=== PATIENT | female | born 1955 | race Caucasian/White ===

== ENCOUNTER 2023-10-16 13:48 | Inpatient (IN) ==
[2023-10-16] MEDS ORDERED: Ondansetron ODT 4 mg TAB 4 MG TAB PO PRN (14:29)
[2023-10-16] MEDS ORDERED: Calcium Carb (TUMS) 500 mg CHEW TAB PO PRN (14:29)
[2023-10-16] MEDS ORDERED: Ondansetron 4 mg VIAL 2 MG/ML 2 ml VIAL IV PRN (14:29)
[2023-10-16] MEDS ORDERED: Magnesium Hydroxide LIQ 30 ML UDC PO PRN (14:29)
[2023-10-16 16:12] LABS: ABS Basophils 0.1 10^3/uL (0.0-0.1); ABS Eosinophils 0.1 10^3/uL (0.0-0.5); ABS Lymphocytes 0.4 10^3/uL (1.0-4.8); ABS Monocytes 0.5 10^3/uL (0.0-0.9); ABS Neutrophils 11.8 10^3/uL (1.5-7.6); Eosinophil % 0.7 %; Hematocrit 39.1 % (35-45); Lymphocyte % 3.2 %; Mean Corpuscular Hemoglobin 27.3 pg (27-33); Mean Corpuscular Hgb Conc 30.8 g/dL (31-36); Mean Corpuscular Volume 88.5 fL (80-97); Mean Platelet Volume 11.8 fL (7.5-11.2); Platelet Count 278 10^3/uL (150-450); Red Blood Count 4.41 10^6/uL (3.63-4.92); Red Cell Distribution Width 17.3 % (12-17)
[2023-10-16 16:18] LABS: Activated Partial Thrombo Time 32.8 seconds (26.0-38.0); INR 1.56 (0.83-1.13)
[2023-10-16] MEDS ORDERED: Albuterol HFA INHALER 8 gm MDI INH PRN (16:19)
[2023-10-16 17:01] LABS: Albumin 3.8 g/dL (3.2-5.2); Albumin/Globulin Ratio 1.5 (1-3); Calcium 9.2 mg/dL (8.6-10.3); Creatinine, Serum 1.32 mg/dL (0.51-0.95); Globulin 2.5 g/dL (2-4); Potassium 4.6 mmol/L (3.5-5.0); Total Bilirubin 0.5 mg/dL (0.2-1.0); Total Protein 6.3 g/dL (6.4-8.9); eGFR CKD-EPI 44.3 (>60)
[2023-10-16] MEDS: Magnesium Hydroxide LIQ 30 ML UDC PO SCH (22:25)
[2023-10-17 06:30] LABS: Hemoglobin 10.6 g/dL (11.5-14.3); Mean Platelet Volume 11.1 fL (7.5-11.2); Platelet Count 252 10^3/uL (150-450)
[2023-10-17 06:44] LABS: INR 1.47 (0.83-1.13)
[2023-10-17 07:07] LABS: Calcium 8.7 mg/dL (8.6-10.3); Creatinine, Serum 1.21 mg/dL (0.51-0.95); Potassium 4.2 mmol/L (3.5-5.0); eGFR CKD-EPI 49.1 (>60)
[2023-10-17] MEDS: Vitamin THERAPEUTIC TAB PO SCH (09:03)
[2023-10-17] MEDS: Enoxaparin 40 MG/0.4 ML SYR SUBCUT SCH (12:55)
[2023-10-17] MEDS: Sulfur Hexaflouride MICROSPHR 25 MG VIAL IV ONE (18:08)
[2023-10-18 05:41] LABS: Hematocrit 33.1 % (35-45); Hemoglobin 10.7 g/dL (11.5-14.3); Mean Platelet Volume 10.6 fL (7.5-11.2); Platelet Count 242 10^3/uL (150-450)
[2023-10-18 05:55] LABS: INR 1.35 (0.83-1.13)
[2023-10-18 07:38] LABS: Calcium 8.7 mg/dL (8.6-10.3); Creatinine, Serum 1.19 mg/dL (0.51-0.95); eGFR CKD-EPI 50.1 (>60)
[2023-10-18 10:33] LABS: Ferritin 47.2 ng/mL (11-307)
[2023-10-19] MEDS: Morphine 2 MG/ML SYRINGE IV PRN (08:18)
[2023-10-19 08:33] LABS: Hematocrit 34.8 % (35-45); Mean Platelet Volume 11.2 fL (7.5-11.2); Platelet Count 269 10^3/uL (150-450)
[2023-10-19 08:40] LABS: INR 1.25 (0.83-1.13)
[2023-10-19 08:51] LABS: Calcium 8.7 mg/dL (8.6-10.3); Creatinine, Serum 1.31 mg/dL (0.51-0.95); eGFR CKD-EPI 44.7 (>60)
[2023-10-19] MEDS ORDERED: Lidocaine 1% w EPI 1:100,000 MDV 20 ML VIAL ONE (12:25)
[2023-10-19] MEDS ORDERED: ROPIVACAINE 5 MG/ML 30 ML BTL (0.5%) ONE (13:17)
[2023-10-19] MEDS ORDERED: Dexamethasone IV 4 MG/ML VIAL 1 ml VIAL ONE ×2 (13:17→13:39)
[2023-10-19] MEDS ORDERED: Midazolam 2 mg/2 ml VIAL 1 mg/ml 2 ml VIAL (2 mg) ONE (13:29)
[2023-10-19] MEDS ORDERED: fentaNYL 100 mcg/2 ml 50 MCG/ML VIAL ONE (13:38)
[2023-10-19] MEDS ORDERED: Rocuronium 50 mg VIAL 10 mg/ml 5 ml VIAL (50 mg) ONE ×2 (13:38→15:56)
[2023-10-19] MEDS ORDERED: Ondansetron 4 mg VIAL 2 MG/ML 2 ml VIAL ONE (13:39)
[2023-10-19] MEDS ORDERED: Phenylephrine IV 10 MG/ML 1 ml VIAL ONE (13:39)
[2023-10-19] MEDS ORDERED: Lidocaine 2% PF 5 ML VIAL ONE (13:39)
[2023-10-19] MEDS ORDERED: Propofol 10 MG/ML 20 ML BTL ONE (13:39)
[2023-10-19] MEDS ORDERED: Buffered Lidocaine 1% SYRIN 1 ml ONE (13:45)
[2023-10-19] MEDS ORDERED: Clindamycin 900 MG/50 **NS BAG 900 MG/50 ML BAG ONE (14:54)
[2023-10-19] MEDS ORDERED: HYDROmorphone 1 MG/1 ML SYRINGE ONE (17:23)
[2023-10-19] MEDS ORDERED: Ondansetron 4 mg VIAL 2 MG/ML 2 ml VIAL IV PRN (17:59)
[2023-10-19] MEDS ORDERED: Naloxone 0.4 mg VIAL 0.4 mg/ml 1 ml VIAL IV PRN (17:59)
[2023-10-19] MEDS: Acetaminophen IV 1 GM/100ML 1,000 MG/100 ML BAG IV ONE (19:21)
[2023-10-19] MEDS: Clindamycin 900 MG/D5W BAG 900 MG/50 ML BAG IVPB SCH (22:15)
[2023-10-20 05:42] LABS: Hematocrit 28.2 % (35-45); Hemoglobin 8.7 g/dL (11.5-14.3); Mean Platelet Volume 11.1 fL (7.5-11.2); Platelet Count 244 10^3/uL (150-450)
[2023-10-20 06:04] LABS: Calcium 8.1 mg/dL (8.6-10.3); Creatinine, Serum 1.64 mg/dL (0.51-0.95); Potassium 4.7 mmol/L (3.5-5.0); eGFR CKD-EPI 34.1 (>60)
[2023-10-20 06:08] LABS: INR 1.42 (0.83-1.13)
[2023-10-20] MEDS: NS 0.9% 500 ml BAG 500 ML IV ONE (09:18)
[2023-10-20 16:53] LABS: Calcium 8.3 mg/dL (8.6-10.3); Creatinine, Serum 1.77 mg/dL (0.51-0.95); Potassium 5.2 mmol/L (3.5-5.0); eGFR CKD-EPI 31.1 (>60)
[2023-10-20] MEDS: NS 0.9% 1000 ml BAG 1,000 ML IV SCH (22:22)
[2023-10-21] MEDS: Lactulose 30 ml UDC PO PRN (08:26)
[2023-10-21 12:40] LABS: ABS Basophils 0.1 10^3/uL (0.0-0.1); ABS Eosinophils 0.2 10^3/uL (0.0-0.5); ABS Lymphocytes 0.5 10^3/uL (1.0-4.8); ABS Monocytes 0.9 10^3/uL (0.0-0.9); ABS Neutrophils 10.2 10^3/uL (1.5-7.6); Eosinophil % 1.5 %; Hematocrit 25.5 % (35-45); Hemoglobin 8.1 g/dL (11.5-14.3); Lymphocyte % 4.6 %; Mean Corpuscular Hemoglobin 28.4 pg (27-33); Mean Corpuscular Hgb Conc 31.6 g/dL (31-36); Mean Corpuscular Volume 89.9 fL (80-97); Mean Platelet Volume 11.3 fL (7.5-11.2); Platelet Count 204 10^3/uL (150-450); Red Blood Count 2.84 10^6/uL (3.63-4.92); Red Cell Distribution Width 17.8 % (12-17); White Blood Count 11.9 10^3/uL (3.8-11.8)
[2023-10-21 12:51] LABS: INR 1.7 (0.83-1.13)
[2023-10-21 16:19] LABS: Calcium 7.9 mg/dL (8.6-10.3); Creatinine, Serum 1.55 mg/dL (0.51-0.95); Potassium 4.5 mmol/L (3.5-5.0); eGFR CKD-EPI 36.5 (>60)
[2023-10-22 17:05] LABS: Rapid COVID-19 Molecular Undetected (Undetected)
[2023-10-23 06:14] LABS: ABS Eosinophils 0.3 10^3/uL (0.0-0.5); ABS Lymphocytes 1.1 10^3/uL (1.0-4.8); ABS Monocytes 0.7 10^3/uL (0.0-0.9); ABS Neutrophils 7.5 10^3/uL (1.5-7.6); ABS Nucleated RBC 0.01 10^3/ul; Eosinophil % 3.1 %; Hemoglobin 7.9 g/dL (11.5-14.3); Mean Corpuscular Hemoglobin 28.3 pg (27-33); Mean Corpuscular Hgb Conc 31.4 g/dL (31-36); Mean Corpuscular Volume 89.9 fL (80-97); Mean Platelet Volume 11.2 fL (7.5-11.2); Nucleated Red Blood Cells % 0.1 %/100WBC (0.0-0.8); Platelet Count 189 10^3/uL (150-450); Red Blood Count 2.78 10^6/uL (3.63-4.92); Red Cell Distribution Width 18.3 % (12-17); White Blood Count 9.6 10^3/uL (3.8-11.8)
[2023-10-23 07:49] LABS: Calcium 8.1 mg/dL (8.6-10.3); Creatinine, Serum 1.22 mg/dL (0.51-0.95); Potassium 4.9 mmol/L (3.5-5.0); eGFR CKD-EPI 48.6 (>60)
[2023-10-23 09:38] VITALS: BP 101/54
== END 2023-10-23 11:14 | DRG 493 ==
LOC: SSU 13:48
PROVIDERS: ADMIT Orthopaedic Surgery Sports Medicine; ATTEND Orthopaedic Surgery Sports Medicine

== ENCOUNTER 2023-10-25 11:01 | Inpatient (IN) ==
[~2023-10-25 11:01] MED LIST: Norepinephrine 4 MG/250mL D5W 4,000 MCG/250 ML BAG IV ONE
[2023-10-25] MEDS ORDERED: Morphine 4 MG/ML VIAL (1 ml) ONE (11:13)
[2023-10-25 11:34] LABS: Hematocrit 21.3 % (35-45); Hemoglobin 6.7 g/dL (11.5-14.3); Mean Corpuscular Hemoglobin 27.8 pg (27-33); Mean Corpuscular Hgb Conc 31.3 g/dL (31-36); Mean Corpuscular Volume 88.9 fL (80-97); Mean Platelet Volume 11.7 fL (7.5-11.2); Platelet Count 187 10^3/uL (150-450); White Blood Count 14.5 10^3/uL (3.8-11.8)
[2023-10-25 12:12] LABS: Albumin 2.8 g/dL (3.2-5.2); Albumin/Globulin Ratio 1.5 (1-3); C Reactive Protein 61.22 mg/L (<8.01); Calcium 7.9 mg/dL (8.6-10.3); Creatinine, Serum 2.05 mg/dL (0.51-0.95); Globulin 1.9 g/dL (2-4); Potassium 5.2 mmol/L (3.5-5.0); Total Bilirubin 0.4 mg/dL (0.2-1.0); Total Protein 4.7 g/dL (6.4-8.9); eGFR CKD-EPI 26.1 (>60)
[2023-10-25 13:17] LABS: ABS Basophils 0.1 10^3/uL (0.0-0.1); ABS Eosinophils 0.1 10^3/uL (0.0-0.5); ABS Lymphocytes 0.8 10^3/uL (1.0-4.8); ABS Monocytes 1.1 10^3/uL (0.0-0.9); ABS Neutrophils 12.5 10^3/uL (1.5-7.6); ABS Nucleated RBC 0.02 10^3/ul; Eosinophil % 0.4 %; Lymphocyte % 5.2 %; Nucleated Red Blood Cells % 0.2 %/100WBC (0.0-0.8)
[2023-10-25 13:23] LABS: High Sensitivity Troponin 1 Hr 5 pg/mL (<15)
[2023-10-25] MEDS: Ondansetron 4 mg VIAL 2 MG/ML 2 ml VIAL IV PRN (15:28)
[2023-10-25] MEDS: SODIUM ZIRCONIUM CYCLOSILICATE 10 GM PACKET PO ONE (18:12)
[2023-10-26 06:45] LABS: Hematocrit 21.1 % (35-45); Hemoglobin 6.8 g/dL (11.5-14.3); Mean Corpuscular Hemoglobin 28.6 pg (27-33); Mean Corpuscular Hgb Conc 32.2 g/dL (31-36); Mean Corpuscular Volume 88.7 fL (80-97); Mean Platelet Volume 11.7 fL (7.5-11.2); Platelet Count 177 10^3/uL (150-450); Red Blood Count 2.38 10^6/uL (3.63-4.92); Red Cell Distribution Width 16.1 % (12-17); White Blood Count 19.4 10^3/uL (3.8-11.8)
[2023-10-26 06:59] LABS: Calcium 7.9 mg/dL (8.6-10.3); Creatinine, Serum 2.7 mg/dL (0.51-0.95); Magnesium 2.6 mg/dL (1.9-2.7); Potassium 5.5 mmol/L (3.5-5.0); eGFR CKD-EPI 18.7 (>60)
[2023-10-26 08:32] LABS: ABS Basophils 0.1 10^3/uL (0.0-0.1); ABS Eosinophils 0.1 10^3/uL (0.0-0.5); ABS Lymphocytes 1.1 10^3/uL (1.0-4.8); ABS Monocytes 1.5 10^3/uL (0.0-0.9); ABS Neutrophils 16.6 10^3/uL (1.5-7.6); ABS Nucleated RBC 0.09 10^3/ul; Anisocytosis 1+; Eosinophil % 0.4 %; Lymphocyte % 5.5 %; Nucleated Red Blood Cells % 0.4 %/100WBC (0.0-0.8); Polychromasia 1+
[2023-10-26] MEDS: Morphine 2 MG/ML SYRINGE IV ONE (13:41)
[2023-10-26] MEDS: SODIUM ZIRCONIUM CYCLOSILICATE 5 GM PACKET PO ONE (13:41)
[2023-10-26 16:40] LABS: Urine Appearance Turbid; Urine Bilirubin Negative (Negative); Urine Blood Negative (Negative); Urine Color Light-Yellow; Urine Glucose Negative (Negative); Urine Ketones Negative (Negative); Urine Nitrite Negative (Negative); Urine Protein Negative (Negative); Urine Specific Gravity 1.012 (1.002-1.030); Urine Urobilinogen 1+ (Negative)
[2023-10-26 16:52] LABS: Urine Bacteria 3+ /HPF (Absent); Urine Red Blood Cell 3+(>10/hpf) /HPF (0-Trace); Urine Squamous Epithelial Cell Present /HPF (Absent); Urine White Blood Cell 3+(>20/hpf) /HPF (0-Trace)
[2023-10-26 21:56] LABS: Calcium 7.9 mg/dL (8.6-10.3); Creatinine, Serum 2.78 mg/dL (0.51-0.95); eGFR CKD-EPI 18.1 (>60)
[2023-10-26 23:48] LABS: Hematocrit 23.2 % (35-45); Hemoglobin 7.5 g/dL (11.5-14.3); Mean Corpuscular Hemoglobin 28.6 pg (27-33); Mean Corpuscular Hgb Conc 32.3 g/dL (31-36); Mean Corpuscular Volume 88.6 fL (80-97); Mean Platelet Volume 10.8 fL (7.5-11.2); Platelet Count 179 10^3/uL (150-450); Red Blood Count 2.62 10^6/uL (3.63-4.92); Red Cell Distribution Width 16.3 % (12-17); White Blood Count 14.1 10^3/uL (3.8-11.8)
[2023-10-27 00:44] LABS: ABS Basophils 0.1 10^3/uL (0.0-0.1); ABS Eosinophils 0.3 10^3/uL (0.0-0.5); ABS Lymphocytes 0.9 10^3/uL (1.0-4.8); ABS Monocytes 1.3 10^3/uL (0.0-0.9); ABS Neutrophils 11.5 10^3/uL (1.5-7.6); ABS Nucleated RBC 0.11 10^3/ul; Lymphocyte % 6.7 %; Nucleated Red Blood Cells % 0.8 %/100WBC (0.0-0.8)
[2023-10-27 06:37] LABS: Calcium 7.9 mg/dL (8.6-10.3); Creatinine, Serum 2.52 mg/dL (0.51-0.95); Potassium 4.8 mmol/L (3.5-5.0); eGFR CKD-EPI 20.4 (>60)
[2023-10-27 07:09] LABS: Hematocrit 21.6 % (35-45); Hemoglobin 7.1 g/dL (11.5-14.3); Mean Corpuscular Hemoglobin 29.3 pg (27-33); Mean Corpuscular Volume 88.8 fL (80-97); Platelet Count 167 10^3/uL (150-450); Red Blood Count 2.43 10^6/uL (3.63-4.92); Red Cell Distribution Width 16.4 % (12-17); White Blood Count 12.1 10^3/uL (3.8-11.8)
[2023-10-27 09:31] LABS: ABS Basophils 0.1 10^3/uL (0.0-0.1); ABS Eosinophils 0.3 10^3/uL (0.0-0.5); ABS Lymphocytes 0.9 10^3/uL (1.0-4.8); ABS Monocytes 1.2 10^3/uL (0.0-0.9); ABS Neutrophils 9.6 10^3/uL (1.5-7.6); ABS Nucleated RBC 0.06 10^3/ul; Acanthocytes 3+; Eosinophil % 2.5 %; Hypochromasia 2+; Lymphocyte % 7.6 %; Nucleated Red Blood Cells % 0.5 %/100WBC (0.0-0.8); Polychromasia 2+
[2023-10-27] MEDS ORDERED: Warfarin per PHARMACY **NOTE FOLLOW UP SCH (17:00)
[2023-10-27 19:33] LABS: INR 0.95 (0.83-1.13)
[2023-10-28 06:03] LABS: Hematocrit 22.3 % (35-45); Hemoglobin 7.3 g/dL (11.5-14.3); Mean Corpuscular Hemoglobin 29.5 pg (27-33); Mean Corpuscular Hgb Conc 32.8 g/dL (31-36); Mean Corpuscular Volume 89.7 fL (80-97); Mean Platelet Volume 10.9 fL (7.5-11.2); Platelet Count 192 10^3/uL (150-450); Red Blood Count 2.49 10^6/uL (3.63-4.92); Red Cell Distribution Width 16.2 % (12-17); White Blood Count 9.5 10^3/uL (3.8-11.8)
[2023-10-28 06:06] LABS: INR 0.94 (0.83-1.13)
[2023-10-28 06:41] LABS: ABS Basophils 0.1 10^3/uL (0.0-0.1); ABS Eosinophils 0.4 10^3/uL (0.0-0.5); ABS Lymphocytes 0.9 10^3/uL (1.0-4.8); ABS Neutrophils 7.1 10^3/uL (1.5-7.6); ABS Nucleated RBC 0.03 10^3/ul; Anisocytosis 1+; Lymphocyte % 9.6 %; Nucleated Red Blood Cells % 0.3 %/100WBC (0.0-0.8); Polychromasia 1+
[2023-10-28 07:10] LABS: C Reactive Protein 138.8 mg/L (<8.01); Creatinine, Serum 1.96 mg/dL (0.51-0.95); Potassium 4.7 mmol/L (3.5-5.0); eGFR CKD-EPI 27.5 (>60)
[2023-10-28] MEDS: Meropenem 1 GM PREMIX(*) 1 GM/50 ML BAG IV SCH (15:48)
[2023-10-28] MEDS: Warfarin DAILY REMINDER **NOTE FOLLOW UP SCH (22:04)
[2023-10-29 08:09] LABS: Hematocrit 24.9 % (35-45); Hemoglobin 8.2 g/dL (11.5-14.3); Mean Corpuscular Hemoglobin 30.3 pg (27-33); Mean Corpuscular Hgb Conc 33.1 g/dL (31-36); Mean Corpuscular Volume 91.6 fL (80-97); Mean Platelet Volume 10.6 fL (7.5-11.2); Platelet Count 247 10^3/uL (150-450); Red Blood Count 2.72 10^6/uL (3.63-4.92); Red Cell Distribution Width 16.8 % (12-17); White Blood Count 9.3 10^3/uL (3.8-11.8)
[2023-10-29 08:24] LABS: INR 0.92 (0.83-1.13)
[2023-10-29 08:35] LABS: ABS Basophils 0.1 10^3/uL (0.0-0.1); ABS Eosinophils 0.4 10^3/uL (0.0-0.5); ABS Lymphocytes 1.1 10^3/uL (1.0-4.8); ABS Neutrophils 6.8 10^3/uL (1.5-7.6); ABS Nucleated RBC 0.03 10^3/ul; Eosinophil % 4.2 %; Lymphocyte % 11.3 %; Nucleated Red Blood Cells % 0.3 %/100WBC (0.0-0.8)
[2023-10-29 09:19] LABS: Calcium 8.5 mg/dL (8.6-10.3); Creatinine, Serum 1.52 mg/dL (0.51-0.95); Magnesium 2.6 mg/dL (1.9-2.7); eGFR CKD-EPI 37.4 (>60)
[2023-10-29] MEDS: Senna TAB 8.6 mg TAB PO PRN (21:38)
[2023-10-29] MEDS: Albuterol HFA INHALER 8 gm MDI INH PRN (21:38)
[2023-10-30 06:52] LABS: INR 0.95 (0.83-1.13)
[2023-10-30 06:55] LABS: Hematocrit 21.5 % (35-45); Mean Corpuscular Hemoglobin 30.1 pg (27-33); Mean Corpuscular Hgb Conc 32.8 g/dL (31-36); Mean Corpuscular Volume 91.6 fL (80-97); Mean Platelet Volume 10.7 fL (7.5-11.2); Platelet Count 240 10^3/uL (150-450); Red Blood Count 2.34 10^6/uL (3.63-4.92); Red Cell Distribution Width 17.1 % (12-17); White Blood Count 8.4 10^3/uL (3.8-11.8)
[2023-10-30 07:23] LABS: Calcium 8.2 mg/dL (8.6-10.3); Creatinine, Serum 1.09 mg/dL (0.51-0.95); Magnesium 2.4 mg/dL (1.9-2.7); Potassium 4.9 mmol/L (3.5-5.0); eGFR CKD-EPI 55.7 (>60)
[2023-10-30 07:58] LABS: ABS Basophils 0.1 10^3/uL (0.0-0.1); ABS Eosinophils 0.2 10^3/uL (0.0-0.5); ABS Lymphocytes 0.8 10^3/uL (1.0-4.8); ABS Monocytes 0.8 10^3/uL (0.0-0.9); ABS Neutrophils 6.5 10^3/uL (1.5-7.6); ABS Nucleated RBC 0.01 10^3/ul; Eosinophil % 2.8 %; Lymphocyte % 9.3 %; Nucleated Red Blood Cells % 0.1 %/100WBC (0.0-0.8)
[2023-10-30 07:59] LABS: Anisocytosis 1+; Polychromasia 1+
[2023-10-30 14:58] LABS: Hematocrit 24.4 % (35-45); Hemoglobin 7.8 g/dL (11.5-14.3); Mean Corpuscular Hemoglobin 29.2 pg (27-33); Mean Corpuscular Hgb Conc 31.8 g/dL (31-36); Mean Corpuscular Volume 91.8 fL (80-97); Mean Platelet Volume 10.1 fL (7.5-11.2); Platelet Count 302 10^3/uL (150-450); Red Blood Count 2.66 10^6/uL (3.63-4.92); Red Cell Distribution Width 17.7 % (12-17); White Blood Count 10.8 10^3/uL (3.8-11.8)
[2023-10-30 15:29] LABS: ABS Basophils 0.1 10^3/uL (0.0-0.1); ABS Eosinophils 0.1 10^3/uL (0.0-0.5); ABS Lymphocytes 0.5 10^3/uL (1.0-4.8); ABS Monocytes 0.7 10^3/uL (0.0-0.9); ABS Neutrophils 9.5 10^3/uL (1.5-7.6); ABS Nucleated RBC 0.02 10^3/ul; Eosinophil % 0.5 %; Lymphocyte % 4.3 %; Nucleated Red Blood Cells % 0.2 %/100WBC (0.0-0.8)
[2023-10-30] MEDS: Polyethylene Glycol 3350 17 GM PACKET PO PRN (22:52)
[2023-10-31 06:01] LABS: Hematocrit 24.5 % (35-45); Hemoglobin 7.7 g/dL (11.5-14.3); Mean Corpuscular Hemoglobin 29.5 pg (27-33); Mean Corpuscular Hgb Conc 31.3 g/dL (31-36); Mean Corpuscular Volume 94.4 fL (80-97); Mean Platelet Volume 10.1 fL (7.5-11.2); Platelet Count 288 10^3/uL (150-450); Red Blood Count 2.59 10^6/uL (3.63-4.92); Red Cell Distribution Width 18.1 % (12-17); White Blood Count 9.3 10^3/uL (3.8-11.8)
[2023-10-31 06:05] LABS: INR 1.05 (0.83-1.13)
[2023-10-31 06:23] LABS: C Reactive Protein 15.5 mg/L (<8.01); Calcium 8.1 mg/dL (8.6-10.3); Creatinine, Serum 1.04 mg/dL (0.51-0.95); Magnesium 2.2 mg/dL (1.9-2.7); Potassium 4.6 mmol/L (3.5-5.0); eGFR CKD-EPI 58.9 (>60)
[2023-10-31 08:08] LABS: ABS Basophils 0.1 10^3/uL (0.0-0.1); ABS Eosinophils 0.3 10^3/uL (0.0-0.5); ABS Lymphocytes 1.3 10^3/uL (1.0-4.8); ABS Monocytes 0.9 10^3/uL (0.0-0.9); ABS Neutrophils 6.8 10^3/uL (1.5-7.6); ABS Nucleated RBC 0.01 10^3/ul; Eosinophil % 3.1 %; Lymphocyte % 14.1 %; Nucleated Red Blood Cells % 0.1 %/100WBC (0.0-0.8)
[2023-10-31 08:09] LABS: Anisocytosis 1+; Polychromasia 1+
[2023-11-01 06:34] LABS: Hematocrit 22.1 % (35-45); Hemoglobin 7.2 g/dL (11.5-14.3); Mean Corpuscular Hemoglobin 29.9 pg (27-33); Mean Corpuscular Hgb Conc 32.6 g/dL (31-36); Mean Corpuscular Volume 91.7 fL (80-97); Platelet Count 299 10^3/uL (150-450); Red Blood Count 2.41 10^6/uL (3.63-4.92); Red Cell Distribution Width 17.4 % (12-17); White Blood Count 9.4 10^3/uL (3.8-11.8)
[2023-11-01 06:41] LABS: INR 1.13 (0.83-1.13)
[2023-11-01 08:02] LABS: ABS Basophils 0.1 10^3/uL (0.0-0.1); ABS Eosinophils 0.3 10^3/uL (0.0-0.5); ABS Lymphocytes 1.2 10^3/uL (1.0-4.8); ABS Monocytes 0.8 10^3/uL (0.0-0.9); ABS Neutrophils 7.1 10^3/uL (1.5-7.6); ABS Nucleated RBC 0.01 10^3/ul; Lymphocyte % 12.6 %; Nucleated Red Blood Cells % 0.1 %/100WBC (0.0-0.8)
[2023-11-01 08:03] LABS: Anisocytosis 1+; Polychromasia 1+
[2023-11-01 11:09] VITALS: BP 98/84
== END 2023-11-01 12:35 | DRG 812 ==
LOC: EDHOLD 11:01 → ED 11:01 → MEDTELE 15:48
PROVIDERS: ADMIT Student in an Organized Health Care Education/Training Program; ATTEND Student in an Organized Health Care Education/Training Program

== ENCOUNTER 2023-11-18 12:58 | Inpatient (IN) ==
[2023-11-18] MEDS ORDERED: Morphine 4 MG/ML VIAL (1 ml) ONE (13:27)
[2023-11-18] MEDS: Morphine 4 MG/ML VIAL (1 ml) IV ONE (13:30)
[2023-11-18 14:45] LABS: Hematocrit 30.9 % (35-45); Hemoglobin 9.6 g/dL (11.5-14.3); Mean Corpuscular Hemoglobin 27.9 pg (27-33); Mean Corpuscular Hgb Conc 31.1 g/dL (31-36); Mean Corpuscular Volume 89.6 fL (80-97); Platelet Count 292 10^3/uL (150-450); Red Blood Count 3.45 10^6/uL (3.63-4.92); Red Cell Distribution Width 17.1 % (12-17)
[2023-11-18 14:52] LABS: INR 2.58 (0.83-1.13)
[2023-11-18 15:05] LABS: Albumin 3.4 g/dL (3.2-5.2); Albumin/Globulin Ratio 1.7 (1-3); Calcium 8.5 mg/dL (8.6-10.3); Creatinine, Serum 1.14 mg/dL (0.51-0.95); Potassium 4.6 mmol/L (3.5-5.0); Total Bilirubin 0.5 mg/dL (0.2-1.0); Total Protein 5.4 g/dL (6.4-8.9); eGFR CKD-EPI 52.8 (>60)
[2023-11-18 15:13] LABS: ABS Basophils 0.1 10^3/uL (0.0-0.1); ABS Lymphocytes 0.4 10^3/uL (1.0-4.8); ABS Monocytes 0.6 10^3/uL (0.0-0.9); ABS Neutrophils 11.9 10^3/uL (1.5-7.6); ABS Nucleated RBC 0.04 10^3/ul; Eosinophil % 0.2 %; Lymphocyte % 3.1 %; Nucleated Red Blood Cells % 0.3 %/100WBC (0.0-0.8)
[2023-11-18] MEDS ORDERED: Albuterol HFA INHALER 8 gm MDI INH PRN (20:14)
[2023-11-18] MEDS: HYDROmorphone 1 MG/1 ML SYRINGE IV SLOW PU ONE (20:24)
[2023-11-18 20:41] LABS: Urine Appearance Clear; Urine Bilirubin Negative (Negative); Urine Blood 1+ (Negative); Urine Color Light-Yellow; Urine Glucose Negative (Negative); Urine Ketones Negative (Negative); Urine Nitrite Negative (Negative); Urine Protein Negative (Negative); Urine Specific Gravity 1.012 (1.002-1.030); Urine Urobilinogen Negative (Negative)
[2023-11-18 20:57] LABS: Urine Bacteria Absent /HPF (Absent); Urine Red Blood Cell 1+(3-5/hpf) /HPF (0-Trace); Urine Squamous Epithelial Cell Present /HPF (Absent); Urine White Blood Cell Trace(0-5/hpf) /HPF (0-Trace)
[2023-11-18] MEDS: NS 0.9% 1000 ml BAG 1,000 ML IV SCH (23:59)
[2023-11-19 02:20] LABS: Hematocrit 25.8 % (35-45); Mean Corpuscular Hemoglobin 27.7 pg (27-33); Mean Corpuscular Volume 89.3 fL (80-97); Platelet Count 259 10^3/uL (150-450); Red Blood Count 2.88 10^6/uL (3.63-4.92); Red Cell Distribution Width 17.4 % (12-17); White Blood Count 11.6 10^3/uL (3.8-11.8)
[2023-11-19 02:26] LABS: INR 1.25 (0.83-1.13)
[2023-11-19] MEDS: HYDROmorphone 0.5 MG/0.5 ML SYRINGE IV SLOW PU ONE (03:19)
[2023-11-19 06:40] LABS: INR 1.12 (0.83-1.13)
[2023-11-19 06:50] LABS: Calcium 8.5 mg/dL (8.6-10.3); Creatinine, Serum 1.35 mg/dL (0.51-0.95); Potassium 4.7 mmol/L (3.5-5.0); eGFR CKD-EPI 43.1 (>60)
[2023-11-19 07:23] LABS: Hematocrit 26.5 % (35-45); Hemoglobin 8.5 g/dL (11.5-14.3); Mean Corpuscular Hemoglobin 28.9 pg (27-33); Mean Corpuscular Volume 90.2 fL (80-97); Mean Platelet Volume 11.4 fL (7.5-11.2); Platelet Count 239 10^3/uL (150-450); Red Blood Count 2.94 10^6/uL (3.63-4.92); Red Cell Distribution Width 17.1 % (12-17); White Blood Count 12.9 10^3/uL (3.8-11.8)
[2023-11-19 08:11] LABS: ABS Basophils 0.1 10^3/uL (0.0-0.1); ABS Eosinophils 0.3 10^3/uL (0.0-0.5); ABS Lymphocytes 1.1 10^3/uL (1.0-4.8); ABS Monocytes 1.2 10^3/uL (0.0-0.9); ABS Neutrophils 10.2 10^3/uL (1.5-7.6); ABS Nucleated RBC 0.07 10^3/ul; Anisocytosis 1+; Eosinophil % 2.4 %; Lymphocyte % 8.6 %; Nucleated Red Blood Cells % 0.5 %/100WBC (0.0-0.8); Polychromasia 1+
[2023-11-19] MEDS ORDERED: Rocuronium 50 mg VIAL 10 mg/ml 5 ml VIAL (50 mg) ONE (13:19)
[2023-11-19] MEDS ORDERED: fentaNYL 100 mcg/2 ml 50 MCG/ML VIAL ONE ×3 (13:19→17:23)
[2023-11-19] MEDS ORDERED: Lidocaine 2% PF 5 ML VIAL ONE (13:19)
[2023-11-19] MEDS ORDERED: Propofol 10 MG/ML 20 ML BTL ONE ×2 (13:19→15:31)
[2023-11-19] MEDS ORDERED: Bupivacaine 0.5% SDV PF 30ML VIAL ONE (13:22)
[2023-11-19] MEDS ORDERED: Midazolam 5 mg/5 ml VIAL 1 mg/ml 5 ml VIAL (5 mg) ONE (13:29)
[2023-11-19] MEDS ORDERED: Albumin Human 5% 12.5 GM/250 ML BTL IV ONE (14:11)
[2023-11-19] MEDS: NS 0.9% 1000 ml BAG 1,000 ML IV SCH (14:14)
[2023-11-19] MEDS ORDERED: Clindamycin 900 MG/50 **NS BAG 900 MG/50 ML BAG ONE (14:59)
[2023-11-19] MEDS ORDERED: Phenylephrine 40 mcg/mL 10mL (400mcg) SYRINGE ONE (15:24)
[2023-11-19] MEDS ORDERED: Dexamethasone IV 4 MG/ML VIAL 1 ml VIAL ONE ×2 (15:24→15:27)
[2023-11-19] MEDS ORDERED: Ondansetron 4 mg VIAL 2 MG/ML 2 ml VIAL ONE (15:24)
[2023-11-19] MEDS ORDERED: Acetaminophen IV 1 GM/100ML 1,000 MG/100 ML BAG IV ONE (15:49)
[2023-11-19] MEDS: fentaNYL 100 mcg/2 ml 50 MCG/ML VIAL IV PRN (16:24)
[2023-11-19] MEDS ORDERED: Vancomycin 1,000 MG in NS 0.9% 250 ml 250 ML IVPB ONE (16:26)
[2023-11-19] MEDS ORDERED: Naloxone 0.4 mg VIAL 0.4 mg/ml 1 ml VIAL IV PRN (16:28)
[2023-11-19] MEDS ORDERED: Ondansetron 4 mg VIAL 2 MG/ML 2 ml VIAL IV PRN (16:28)
[2023-11-19] MEDS ORDERED: Vancomycin per Pharmacy 1 EA NOTE FOLLOW UP SCH (17:00)
[2023-11-19] MEDS: Lactated Ringers 1000 ml BAG 1,000 ML IV SCH (18:33)
[2023-11-19] MEDS: Vancomycin 2,000 MG in NS 0.9% 500 ml BAG 500 ML IVPB ONE (18:33)
[2023-11-19] MEDS: Midazolam 2 mg/2 ml VIAL 1 mg/ml 2 ml VIAL (2 mg) IV SLOW PU ONE (18:34)
[2023-11-19] MEDS: Famotidine IV 10 MG/ML 2 ml VIAL (20 mg) IV ONE (18:34)
[2023-11-20 05:30] LABS: Hematocrit 21.3 % (35-45); Hemoglobin 6.8 g/dL (11.5-14.3); Mean Corpuscular Hemoglobin 29.1 pg (27-33); Mean Corpuscular Hgb Conc 31.7 g/dL (31-36); Mean Corpuscular Volume 91.8 fL (80-97); Mean Platelet Volume 11.6 fL (7.5-11.2); Platelet Count 228 10^3/uL (150-450); Red Blood Count 2.32 10^6/uL (3.63-4.92); Red Cell Distribution Width 17.3 % (12-17); White Blood Count 16.1 10^3/uL (3.8-11.8)
[2023-11-20 05:52] LABS: Creatinine, Serum 1.51 mg/dL (0.51-0.95); Magnesium 1.9 mg/dL (1.9-2.7); Potassium 5.2 mmol/L (3.5-5.0); eGFR CKD-EPI 37.7 (>60)
[2023-11-20 07:00] LABS: ABS Basophils 0.1 10^3/uL (0.0-0.1); ABS Lymphocytes 0.3 10^3/uL (1.0-4.8); ABS Monocytes 0.7 10^3/uL (0.0-0.9); ABS Neutrophils 14.9 10^3/uL (1.5-7.6); ABS Nucleated RBC 0.05 10^3/ul; Anisocytosis 1+; Lymphocyte % 2.1 %; Nucleated Red Blood Cells % 0.3 %/100WBC (0.0-0.8); Polychromasia 2+
[2023-11-20] MEDS: NS 0.9% 1000 ml BAG 1,000 ML IV SCH (13:07)
[2023-11-20 13:22] LABS: Hematocrit 24.3 % (35-45); Hemoglobin 7.8 g/dL (11.5-14.3)
[2023-11-20 13:37] LABS: INR 1.15 (0.83-1.13)
[2023-11-20] MEDS: ZOSYN 3.375 GM x ONE DOSE over 30 miuntes IV (15:54)
[2023-11-20] MEDS ORDERED: Zosyn per Pharmacy NOTE FOLLOW UP SCH (16:00)
[2023-11-20] MEDS: Vancomycin 1,750 MG in NS 0.9% 500 ml BAG 500 ML IVPB SCH (18:31)
[2023-11-20] MEDS: ZOSYN 3.375 GM Q8H per EXTENDED INFUSION IV SCH (20:36)
[2023-11-20 23:02] LABS: Hematocrit 25.8 % (35-45); Hemoglobin 8.2 g/dL (11.5-14.3)
[2023-11-21 07:11] LABS: Hematocrit 24.1 % (35-45); Hemoglobin 7.8 g/dL (11.5-14.3); Mean Corpuscular Hemoglobin 29.8 pg (27-33); Mean Corpuscular Hgb Conc 32.3 g/dL (31-36); Mean Corpuscular Volume 92.2 fL (80-97); Mean Platelet Volume 11.1 fL (7.5-11.2); Platelet Count 224 10^3/uL (150-450); Red Blood Count 2.62 10^6/uL (3.63-4.92); Red Cell Distribution Width 17.5 % (12-17); White Blood Count 12.3 10^3/uL (3.8-11.8)
[2023-11-21 07:14] LABS: INR 1.39 (0.83-1.13)
[2023-11-21 07:30] LABS: Creatinine, Serum 1.82 mg/dL (0.51-0.95); Potassium 4.5 mmol/L (3.5-5.0); eGFR CKD-EPI 30.1 (>60)
[2023-11-21 08:24] LABS: ABS Eosinophils 0.3 10^3/uL (0.0-0.5); ABS Monocytes 0.8 10^3/uL (0.0-0.9); ABS Neutrophils 10.1 10^3/uL (1.5-7.6); ABS Nucleated RBC 0.03 10^3/ul; Eosinophil % 2.6 %; Lymphocyte % 8.3 %; Nucleated Red Blood Cells % 0.3 %/100WBC (0.0-0.8)
[2023-11-21] MEDS: Furosemide 20 mg/2 ml IV VIAL IV ONE (09:44)
[2023-11-21] MEDS: Amoxicillin/Clavul 875/125 TAB (Augmentin 875 tab) PO SCH (21:46)
[2023-11-22 08:21] LABS: Hematocrit 23.6 % (35-45); Hemoglobin 7.7 g/dL (11.5-14.3); Mean Corpuscular Hgb Conc 32.5 g/dL (31-36); Mean Corpuscular Volume 92.5 fL (80-97); Mean Platelet Volume 10.9 fL (7.5-11.2); Platelet Count 208 10^3/uL (150-450); Red Blood Count 2.55 10^6/uL (3.63-4.92); Red Cell Distribution Width 17.2 % (12-17); White Blood Count 10.8 10^3/uL (3.8-11.8)
[2023-11-22 08:39] LABS: INR 1.43 (0.83-1.13)
[2023-11-22 08:44] LABS: Calcium 7.9 mg/dL (8.6-10.3); Creatinine, Serum 1.65 mg/dL (0.51-0.95); Magnesium 2.1 mg/dL (1.9-2.7); Potassium 4.4 mmol/L (3.5-5.0); eGFR CKD-EPI 33.9 (>60)
[2023-11-22 08:54] LABS: ABS Eosinophils 0.5 10^3/uL (0.0-0.5); ABS Lymphocytes 0.9 10^3/uL (1.0-4.8); ABS Monocytes 0.8 10^3/uL (0.0-0.9); ABS Neutrophils 8.6 10^3/uL (1.5-7.6); ABS Nucleated RBC 0.01 10^3/ul; Eosinophil % 4.2 %; Lymphocyte % 8.4 %; Nucleated Red Blood Cells % 0.1 %/100WBC (0.0-0.8)
[2023-11-22] MEDS: Polyethylene Glycol 3350 17 GM PACKET PO PRN (11:50)
[2023-11-22] MEDS: Senna TAB 8.6 mg TAB PO PRN (11:50)
[2023-11-22] MEDS ORDERED: Vancomycin Trough Check NOTE FOLLOW UP ONE (17:30)
[2023-11-23 06:47] LABS: Hematocrit 26.9 % (35-45); Hemoglobin 8.4 g/dL (11.5-14.3); Mean Corpuscular Hemoglobin 29.3 pg (27-33); Mean Corpuscular Hgb Conc 31.1 g/dL (31-36); Mean Corpuscular Volume 94.2 fL (80-97); Mean Platelet Volume 11.1 fL (7.5-11.2); Platelet Count 216 10^3/uL (150-450); Red Blood Count 2.85 10^6/uL (3.63-4.92)
[2023-11-23 07:21] LABS: ABS Basophils 0.1 10^3/uL (0.0-0.1); ABS Eosinophils 0.5 10^3/uL (0.0-0.5); ABS Monocytes 0.8 10^3/uL (0.0-0.9); ABS Neutrophils 8.7 10^3/uL (1.5-7.6); ABS Nucleated RBC 0.02 10^3/ul; Anisocytosis 1+; Eosinophil % 4.4 %; Nucleated Red Blood Cells % 0.2 %/100WBC (0.0-0.8); Polychromasia 1+
[2023-11-23 07:34] LABS: Calcium 8.2 mg/dL (8.6-10.3); Creatinine, Serum 1.29 mg/dL (0.51-0.95); Magnesium 2.1 mg/dL (1.9-2.7); Potassium 4.1 mmol/L (3.5-5.0); eGFR CKD-EPI 45.5 (>60)
[2023-11-23] MEDS: Ondansetron 4 mg VIAL 2 MG/ML 2 ml VIAL IV PRN (13:03)
[2023-11-24 06:08] LABS: Hematocrit 23.6 % (35-45); Hemoglobin 7.5 g/dL (11.5-14.3); Mean Corpuscular Hgb Conc 31.8 g/dL (31-36); Mean Corpuscular Volume 94.4 fL (80-97); Mean Platelet Volume 11.2 fL (7.5-11.2); Platelet Count 194 10^3/uL (150-450); Red Cell Distribution Width 18.4 % (12-17); White Blood Count 8.5 10^3/uL (3.8-11.8)
[2023-11-24 06:20] LABS: Albumin 2.6 g/dL (3.2-5.2); Albumin/Globulin Ratio 1.4 (1-3); Creatinine, Serum 1.09 mg/dL (0.51-0.95); Globulin 1.9 g/dL (2-4); Potassium 4.5 mmol/L (3.5-5.0); Total Bilirubin 0.3 mg/dL (0.2-1.0); Total Protein 4.5 g/dL (6.4-8.9); eGFR CKD-EPI 55.7 (>60)
[2023-11-24 07:06] LABS: ABS Basophils 0.1 10^3/uL (0.0-0.1); ABS Eosinophils 0.4 10^3/uL (0.0-0.5); ABS Lymphocytes 0.8 10^3/uL (1.0-4.8); ABS Monocytes 0.6 10^3/uL (0.0-0.9); ABS Neutrophils 6.6 10^3/uL (1.5-7.6); ABS Nucleated RBC 0.03 10^3/ul; Eosinophil % 4.5 %; Lymphocyte % 9.4 %; Nucleated Red Blood Cells % 0.3 %/100WBC (0.0-0.8)
[2023-11-24 07:07] LABS: Anisocytosis 1+; Polychromasia 2+
[2023-11-24 09:27] LABS: Immature Retic Fraction 0.51
[2023-11-24 09:43] LABS: Corrected Retic Count 2.6 % (0.5-2.2); Hematocrit for Retic CNT 24.3 % (35-45); RBC Retic Count 2.59 10^6/ul (3.63-4.92)
[2023-11-24 10:57] LABS: Ferritin 241.4 ng/mL (11-307)
[2023-11-24 11:01] LABS: Folate 7.65 ng/mL (5.90-24.80)
[2023-11-24] MEDS: Cyanocobalamin INJ 1,000 MCG/ML VIAL 1 ML VIAL IM ONE (15:12)
[2023-11-25 05:41] LABS: Hematocrit 22.8 % (35-45); Hemoglobin 7.4 g/dL (11.5-14.3); Mean Corpuscular Hemoglobin 30.1 pg (27-33); Mean Corpuscular Hgb Conc 32.3 g/dL (31-36); Mean Corpuscular Volume 93.3 fL (80-97); Platelet Count 218 10^3/uL (150-450); Red Blood Count 2.44 10^6/uL (3.63-4.92); White Blood Count 8.9 10^3/uL (3.8-11.8)
[2023-11-25 06:21] LABS: Albumin 2.7 g/dL (3.2-5.2); Albumin/Globulin Ratio 1.4 (1-3); Calcium 8.1 mg/dL (8.6-10.3); Creatinine, Serum 0.95 mg/dL (0.51-0.95); Globulin 1.9 g/dL (2-4); Potassium 4.7 mmol/L (3.5-5.0); Total Bilirubin 0.3 mg/dL (0.2-1.0); Total Protein 4.6 g/dL (6.4-8.9); eGFR CKD-EPI 65.7 (>60)
[2023-11-25 06:22] LABS: ABS Basophils 0.1 10^3/uL (0.0-0.1); ABS Eosinophils 0.1 10^3/uL (0.0-0.5); ABS Lymphocytes 0.7 10^3/uL (1.0-4.8); ABS Monocytes 0.5 10^3/uL (0.0-0.9); ABS Neutrophils 7.5 10^3/uL (1.5-7.6); ABS Nucleated RBC 0.01 10^3/ul; Lymphocyte % 7.9 %; Nucleated Red Blood Cells % 0.1 %/100WBC (0.0-0.8)
[2023-11-25] MEDS: Multivitamins/Minerals TAB PO SCH (11:55)
[2023-11-25] MEDS: Enoxaparin 40 MG/0.4 ML SYR SUBCUT SCH (11:55)
[2023-11-25] MEDS: Cyanocobalamin INJ 1,000 MCG/ML VIAL 1 ML VIAL IM ONE (11:55)
[2023-11-25] MEDS: Furosemide 20 mg/2 ml IV VIAL IV SLOW PU SCH (15:28)
[2023-11-26 07:05] LABS: Hematocrit 24.6 % (35-45); Hemoglobin 7.9 g/dL (11.5-14.3); Mean Corpuscular Hemoglobin 30.4 pg (27-33); Mean Corpuscular Volume 95.2 fL (80-97); Mean Platelet Volume 11.1 fL (7.5-11.2); Platelet Count 241 10^3/uL (150-450); Red Blood Count 2.59 10^6/uL (3.63-4.92); Red Cell Distribution Width 19.9 % (12-17); White Blood Count 10.1 10^3/uL (3.8-11.8)
[2023-11-26 07:23] LABS: Albumin 2.9 g/dL (3.2-5.2); Albumin/Globulin Ratio 1.4 (1-3); Calcium 8.4 mg/dL (8.6-10.3); Creatinine, Serum 1.1 mg/dL (0.51-0.95); Globulin 2.1 g/dL (2-4); Potassium 4.2 mmol/L (3.5-5.0); Total Bilirubin 0.3 mg/dL (0.2-1.0); eGFR CKD-EPI 55.1 (>60)
[2023-11-26 08:37] LABS: ABS Basophils 0.1 10^3/uL (0.0-0.1); ABS Eosinophils 0.3 10^3/uL (0.0-0.5); ABS Lymphocytes 1.2 10^3/uL (1.0-4.8); ABS Monocytes 0.9 10^3/uL (0.0-0.9); ABS Neutrophils 7.5 10^3/uL (1.5-7.6); ABS Nucleated RBC 0.01 10^3/ul; Eosinophil % 2.8 %; Lymphocyte % 12.2 %; Nucleated Red Blood Cells % 0.1 %/100WBC (0.0-0.8); RBC Morphology Normal (Normal)
[2023-11-26] MEDS: Cyanocobalamin INJ 1,000 MCG/ML VIAL 1 ML VIAL IM ONE (15:09)
[2023-11-27 10:11] LABS: Hematocrit 25.2 % (35-45); Hemoglobin 7.9 g/dL (11.5-14.3); Mean Corpuscular Hemoglobin 29.8 pg (27-33); Mean Corpuscular Hgb Conc 31.3 g/dL (31-36); Mean Corpuscular Volume 95.3 fL (80-97); Mean Platelet Volume 11.3 fL (7.5-11.2); Platelet Count 279 10^3/uL (150-450); Red Blood Count 2.64 10^6/uL (3.63-4.92); Red Cell Distribution Width 20.8 % (12-17); White Blood Count 12.6 10^3/uL (3.8-11.8)
[2023-11-27 10:49] LABS: Calcium 8.4 mg/dL (8.6-10.3); Creatinine, Serum 1.24 mg/dL (0.51-0.95); Potassium 4.2 mmol/L (3.5-5.0); eGFR CKD-EPI 47.7 (>60)
[2023-11-27 11:07] LABS: ABS Basophils 0.1 10^3/uL (0.0-0.1); ABS Eosinophils 0.4 10^3/uL (0.0-0.5); ABS Lymphocytes 1.5 10^3/uL (1.0-4.8); ABS Monocytes 1.1 10^3/uL (0.0-0.9); ABS Neutrophils 9.5 10^3/uL (1.5-7.6); ABS Nucleated RBC 0.01 10^3/ul; Anisocytosis 2+; Eosinophil % 3.5 %; Lymphocyte % 11.5 %; Nucleated Red Blood Cells % 0.1 %/100WBC (0.0-0.8); Polychromasia 1+
[2023-11-27 15:56] LABS: Hematocrit 24.2 % (35-45); Hemoglobin 7.7 g/dL (11.5-14.3)
[2023-11-27] MEDS ORDERED: Warfarin per PHARMACY **NOTE FOLLOW UP SCH (17:00)
[2023-11-28 07:05] LABS: Hematocrit 22.8 % (35-45); Hemoglobin 7.3 g/dL (11.5-14.3); Mean Corpuscular Hemoglobin 30.3 pg (27-33); Mean Corpuscular Hgb Conc 31.9 g/dL (31-36); Mean Corpuscular Volume 95.1 fL (80-97); Mean Platelet Volume 11.4 fL (7.5-11.2); Platelet Count 252 10^3/uL (150-450); Red Cell Distribution Width 20.3 % (12-17); White Blood Count 10.8 10^3/uL (3.8-11.8)
[2023-11-28 07:10] LABS: INR 1.22 (0.83-1.13)
[2023-11-28 07:31] LABS: Calcium 8.3 mg/dL (8.6-10.3); Creatinine, Serum 1.08 mg/dL (0.51-0.95); Potassium 4.3 mmol/L (3.5-5.0); eGFR CKD-EPI 56.3 (>60)
[2023-11-28 09:06] LABS: ABS Basophils 0.1 10^3/uL (0.0-0.1); ABS Eosinophils 0.3 10^3/uL (0.0-0.5); ABS Lymphocytes 1.3 10^3/uL (1.0-4.8); ABS Neutrophils 8.2 10^3/uL (1.5-7.6); ABS Nucleated RBC 0.01 10^3/ul; Eosinophil % 2.5 %; Lymphocyte % 11.7 %; Nucleated Red Blood Cells % 0.1 %/100WBC (0.0-0.8)
[2023-11-28 09:10] LABS: RBC Morphology Normal (Normal)
[2023-11-28] MEDS: Warfarin DAILY REMINDER **NOTE FOLLOW UP SCH (16:46)
[2023-11-28] MEDS: Furosemide 20 mg/2 ml IV VIAL IV ONE (18:36)
[2023-11-29 06:33] LABS: Hemoglobin 7.2 g/dL (11.5-14.3); Mean Corpuscular Hgb Conc 31.5 g/dL (31-36); Mean Corpuscular Volume 95.1 fL (80-97); Mean Platelet Volume 11.1 fL (7.5-11.2); Platelet Count 252 10^3/uL (150-450); Red Blood Count 2.41 10^6/uL (3.63-4.92); Red Cell Distribution Width 20.7 % (12-17); White Blood Count 10.6 10^3/uL (3.8-11.8)
[2023-11-29 06:43] LABS: INR 1.21 (0.83-1.13)
[2023-11-29 06:53] LABS: Calcium 8.3 mg/dL (8.6-10.3); Creatinine, Serum 1.2 mg/dL (0.51-0.95); Potassium 4.4 mmol/L (3.5-5.0); eGFR CKD-EPI 49.6 (>60)
[2023-11-29] MEDS: Ferric Gluconate IV 250 MG in NS 0.9% 250 ml 200 ML IVPB SCH (10:00)
[2023-11-29 10:20] VITALS: BP 96/60
== END 2023-11-29 13:12 | DRG 908 ==
LOC: ED 12:58 → SUATTDRO 14:22 → EDHOLD 14:22 → SSU 16:00
PROVIDERS: ADMIT Hospitalist; ATTEND Internal Medicine

== ENCOUNTER 2023-12-01 23:22 | Inpatient (IN) ==
[2023-12-02] MEDS ORDERED: Senna TAB 8.6 mg TAB PO PRN (00:51)
[2023-12-02] MEDS ORDERED: Polyethylene Glycol 3350 17 GM PACKET PO PRN (00:51)
[2023-12-02 00:56] LABS: Hematocrit 23.2 % (35-45); Hemoglobin 7.5 g/dL (11.5-14.3); Mean Corpuscular Hemoglobin 29.5 pg (27-33); Mean Corpuscular Hgb Conc 32.4 g/dL (31-36); Mean Corpuscular Volume 91.1 fL (80-97); Mean Platelet Volume 11.4 fL (7.5-11.2); Platelet Count 235 10^3/uL (150-450); Red Blood Count 2.55 10^6/uL (3.63-4.92); Red Cell Distribution Width 19.7 % (12-17); White Blood Count 19.8 10^3/uL (3.8-11.8)
[2023-12-02 01:18] LABS: Albumin 2.4 g/dL (3.2-5.2); Albumin/Globulin Ratio 1.4 (1-3); Calcium 8.2 mg/dL (8.6-10.3); Creatinine, Serum 1.75 mg/dL (0.51-0.95); Globulin 1.7 g/dL (2-4); Potassium 5.3 mmol/L (3.5-5.0); Total Bilirubin 0.6 mg/dL (0.2-1.0); Total Protein 4.1 g/dL (6.4-8.9); eGFR CKD-EPI 31.5 (>60)
[2023-12-02 01:27] LABS: Magnesium 1.9 mg/dL (1.9-2.7); Phosphorus 5.2 mg/dL (2.5-5.0)
[2023-12-02 01:30] LABS: ABS Basophils 0.1 10^3/uL (0.0-0.1); ABS Lymphocytes 0.9 10^3/uL (1.0-4.8); ABS Monocytes 1.3 10^3/uL (0.0-0.9); ABS Neutrophils 17.5 10^3/uL (1.5-7.6); ABS Nucleated RBC 0.03 10^3/ul; Eosinophil % 0.1 %; Lymphocyte % 4.3 %; Nucleated Red Blood Cells % 0.1 %/100WBC (0.0-0.8)
[2023-12-02 01:37] LABS: Ferritin 628.3 ng/mL (11-307)
[2023-12-02 01:57] LABS: C Reactive Protein 72.58 mg/L (<8.01); Folate 11.53 ng/mL (5.90-24.80)
[2023-12-02 02:03] LABS: Anisocytosis 1+; Polychromasia 1+
[2023-12-02 02:06] LABS: ABS Lymphocytes 1.2 10^3/ul (1.0-4.8); ABS Monocytes 1.2 10^3/ul (0.0-0.9); ABS Neutrophils 17.4 10^3/ul (1.5-7.6)
[2023-12-02] MEDS: Ondansetron 4 mg VIAL 2 MG/ML 2 ml VIAL IV PRN (02:10)
[2023-12-02] MEDS: Lactated Ringers 1000 ml BAG 500 ML IV ONE (02:10)
[2023-12-02 02:44] LABS: Activated Partial Thrombo Time 45.7 seconds (26.0-38.0); INR 1.41 (0.83-1.13)
[2023-12-02 02:48] LABS: Erythrocyte Sed Rate 28 mm/Hr (0-29)
[2023-12-02] MEDS ORDERED: Zosyn per Pharmacy NOTE FOLLOW UP SCH (03:00)
[2023-12-02] MEDS ORDERED: Vancomycin per Pharmacy 1 EA NOTE FOLLOW UP SCH (03:00)
[2023-12-02] MEDS: HYDROmorphone 1 MG/1 ML SYRINGE IV SLOW PU PRN ×2 (03:37→09:53)
[2023-12-02] MEDS: Pantoprazole VIAL 40 MG VIAL IV SCH (03:39)
[2023-12-02] MEDS: Lactated Ringers 1000 ml BAG 1,000 ML IV SCH (04:12)
[2023-12-02 04:14] LABS: Urine Appearance Clear; Urine Bilirubin Negative (Negative); Urine Blood Negative (Negative); Urine Color Yellow; Urine Glucose Negative (Negative); Urine Ketones Negative (Negative); Urine Nitrite Negative (Negative); Urine Protein Negative (Negative); Urine Specific Gravity 1.016 (1.002-1.030); Urine Urobilinogen Negative (Negative)
[2023-12-02] MEDS: HYDROmorphone 1 MG/1 ML SYRINGE ONE (04:17)
[2023-12-02] MEDS: Pantoprazole VIAL 40 MG VIAL ONE (04:17)
[2023-12-02] MEDS: ZOSYN 3.375 GM x ONE DOSE over 30 miuntes IV (04:28)
[2023-12-02] MEDS: Norepinephrine 4 MG/250mL D5W 4,000 MCG/250 ML BAG IV ONE (04:29)
[2023-12-02] MEDS: Norepinephrine 4 MG/250mL D5W 4,000 MCG/250 ML BAG IV SCH ×2 (04:41→08:48)
[2023-12-02] MEDS: Vancomycin 2,000 MG in NS 0.9% 500 ml BAG 500 ML IVPB ONE (05:11)
[2023-12-02 06:46] LABS: Hematocrit 20.3 % (35-45); Hemoglobin 6.6 g/dL (11.5-14.3); Mean Corpuscular Hgb Conc 32.7 g/dL (31-36); Mean Corpuscular Volume 91.9 fL (80-97); Mean Platelet Volume 11.6 fL (7.5-11.2); Platelet Count 224 10^3/uL (150-450); Red Cell Distribution Width 20.6 % (12-17)
[2023-12-02 07:19] LABS: Magnesium 1.9 mg/dL (1.9-2.7); Phosphorus 5.6 mg/dL (2.5-5.0)
[2023-12-02 07:45] LABS: ABS Basophils 0.1 10^3/uL (0.0-0.1); ABS Lymphocytes 0.9 10^3/uL (1.0-4.8); ABS Monocytes 1.5 10^3/uL (0.0-0.9); ABS Neutrophils 18.4 10^3/uL (1.5-7.6); ABS Nucleated RBC 0.02 10^3/ul; Anisocytosis 2+; Eosinophil % 0.2 %; Lymphocyte % 4.5 %; Nucleated Red Blood Cells % 0.1 %/100WBC (0.0-0.8); Polychromasia 1+
[2023-12-02 08:15] LABS: Calcium 7.9 mg/dL (8.6-10.3); Creatinine, Serum 1.87 mg/dL (0.51-0.95); Potassium 5.1 mmol/L (3.5-5.0); eGFR CKD-EPI 29.1 (>60)
[2023-12-02] MEDS ORDERED: ZOSYN 3.375 GM Q8H per EXTENDED INFUSION IV SCH (08:30)
[2023-12-02] MEDS: Phytonadione IV (Adult) 10 MG in NS 0.9% 50 ML 50 ML IV ONE (09:30)
[2023-12-02] MEDS: Amoxicillin/Clavul 875/125 TAB (Augmentin 875 tab) PO SCH (13:26)
[2023-12-02] MEDS: HYDROmorphone 1 MG/1 ML SYRINGE IV SLOW PU ONE (14:19)
[2023-12-02 14:49] LABS: Hematocrit 22.3 % (35-45); Hemoglobin 7.3 g/dL (11.5-14.3); Mean Corpuscular Hemoglobin 30.6 pg (27-33); Mean Corpuscular Hgb Conc 32.7 g/dL (31-36); Mean Corpuscular Volume 93.5 fL (80-97); Mean Platelet Volume 11.8 fL (7.5-11.2); Platelet Count 210 10^3/uL (150-450); Red Blood Count 2.38 10^6/uL (3.63-4.92); Red Cell Distribution Width 18.8 % (12-17); White Blood Count 28.9 10^3/uL (3.8-11.8)
[2023-12-02 15:06] LABS: Creatinine, Serum 2.18 mg/dL (0.51-0.95); Potassium 5.8 mmol/L (3.5-5.0); eGFR CKD-EPI 24.2 (>60)
[2023-12-02 15:15] LABS: ABS Basophils 0.1 10^3/uL (0.0-0.1); ABS Lymphocytes 0.7 10^3/uL (1.0-4.8); ABS Monocytes 1.9 10^3/uL (0.0-0.9); ABS Neutrophils 26.3 10^3/uL (1.5-7.6); ABS Nucleated RBC 0.18 10^3/ul; Lymphocyte % 2.3 %; Nucleated Red Blood Cells % 0.6 %/100WBC (0.0-0.8)
[2023-12-02] MEDS: Iodixanol (CONTRAST) 320 MG/ML 100 ML SDV IV ONE (16:09)
[2023-12-02] MEDS ORDERED: Lorazepam PYXIS KEY PRN (19:11)
[2023-12-02 20:33] LABS: Hemoglobin 7.4 g/dL (11.5-14.3); Mean Corpuscular Hemoglobin 29.9 pg (27-33); Mean Corpuscular Hgb Conc 32.1 g/dL (31-36); Mean Corpuscular Volume 93.2 fL (80-97); Mean Platelet Volume 11.6 fL (7.5-11.2); Platelet Count 262 10^3/uL (150-450); Red Blood Count 2.47 10^6/uL (3.63-4.92); Red Cell Distribution Width 19.3 % (12-17); White Blood Count 37.9 10^3/uL (3.8-11.8)
[2023-12-02 22:02] LABS: ABS Basophils 0.1 10^3/uL (0.0-0.1); ABS Lymphocytes 1.1 10^3/uL (1.0-4.8); ABS Nucleated RBC 0.41 10^3/ul; Anisocytosis 1+; Lymphocyte % 2.9 %; Nucleated Red Blood Cells % 1.1 %/100WBC (0.0-0.8); Polychromasia 2+
[2023-12-02 23:32] LABS: Hematocrit 22.7 % (35-45); Hemoglobin 7.1 g/dL (11.5-14.3)
[2023-12-03 05:05] LABS: Hemoglobin 6.4 g/dL (11.5-14.3); Mean Corpuscular Hemoglobin 29.9 pg (27-33); Mean Corpuscular Hgb Conc 31.8 g/dL (31-36); Mean Corpuscular Volume 94.2 fL (80-97); Platelet Count 240 10^3/uL (150-450); Red Blood Count 2.13 10^6/uL (3.63-4.92); White Blood Count 40.3 10^3/uL (3.8-11.8)
[2023-12-03 05:42] LABS: Albumin 2.5 g/dL (3.2-5.2); Albumin/Globulin Ratio 1.3 (1-3); Calcium 7.8 mg/dL (8.6-10.3); Creatinine, Serum 2.9 mg/dL (0.51-0.95); Globulin 1.9 g/dL (2-4); Magnesium 1.8 mg/dL (1.9-2.7); Phosphorus 7.3 mg/dL (2.5-5.0); Potassium 6.1 mmol/L (3.5-5.0); Total Bilirubin 0.4 mg/dL (0.2-1.0); Total Protein 4.4 g/dL (6.4-8.9); eGFR CKD-EPI 17.2 (>60)
[2023-12-03] MEDS: SODIUM ZIRCONIUM CYCLOSILICATE 10 GM PACKET PO ONE (06:08)
[2023-12-03] MEDS ORDERED: Vancomycin 1,250 MG in NS 0.9% 250 ml 250 ML IVPB SCH (06:30)
[2023-12-03 07:18] LABS: ABS Basophils 0.1 10^3/uL (0.0-0.1); ABS Lymphocytes 1.3 10^3/uL (1.0-4.8); ABS Neutrophils 35.9 10^3/uL (1.5-7.6); ABS Nucleated RBC 0.88 10^3/ul; Eosinophil % 0.1 %; Lymphocyte % 3.1 %; Nucleated Red Blood Cells % 2.2 %/100WBC (0.0-0.8)
[2023-12-03] MEDS: HYDROmorphone 1 MG/1 ML SYRINGE IV SLOW PU PRN ×2 (08:13→18:52)
[2023-12-03] MEDS: Magnesium Sulfate IV 1GM/100ML 1 GM/100 ML BAG IV ONE (08:23)
[2023-12-03] MEDS: Ondansetron 4 mg VIAL 2 MG/ML 2 ml VIAL IV PRN (08:40)
[2023-12-03] MEDS: Albumin Human 25% 25 GM/100 ML BTL IV ONE (09:30)
[2023-12-03] MEDS: Albumin Human 5% 12.5 GM/250 ML BTL IV ONE (09:49)
[2023-12-03] MEDS: Bumetanide IV 0.25 MG/ML 4 ml VIAL (1 mg) IV SLOW PU ONE ×2 (10:33)
[2023-12-03] MEDS ORDERED: Vancomycin per Pharmacy 1 EA NOTE FOLLOW UP SCH (11:00)
[2023-12-03] MEDS ORDERED: Aztreonam 1 GM in NS 0.9% 50 ML 50 ML IV SCH (11:00)
[2023-12-03] MEDS: Aztreonam 2 GM in NS 0.9% 50 ML 50 ML IV SCH (12:15)
[2023-12-03] MEDS: Vancomycin 2,000 MG in NS 0.9% 500 ml BAG 500 ML IVPB ONE (12:42)
[2023-12-03] MEDS ORDERED: NS 0.9% 1000 ml BAG 200 ML IV PRN ×3 (13:03→14:02)
[2023-12-03] MEDS ORDERED: Albumin Human 25% 25 GM/100 ML BTL IV PRN ×2 (13:03→14:02)
[2023-12-03] MEDS ORDERED: NS 0.9% 1000 ml BAG 100 ML IV PRN ×3 (13:03→14:02)
[2023-12-03 16:53] LABS: Hepatitis B Surface Ab Not Immune (Immune)
[2023-12-03] MEDS: Norepinephrine 16 MG/250mL NS 16,000 MCG/250 ML BAG IV SCH ×2 (18:07→18:09)
[2023-12-03] MEDS: Vancomycin 1,000 MG in NS 0.9% 250 ml 250 ML IVPB ONE (19:30)
[2023-12-03] MEDS: Heparin 1,000 UNIT/ML 10 ml (10,000 UNITS) CATHLAB/DIALYSIS DIALYSIS PRN (20:18)
[2023-12-03] MEDS: Aztreonam 2 GM in NS 0.9% 100 ml BAG 100 ML IV SCH (20:36)
[2023-12-04] MEDS: Lidocaine 1% VIAL 10 MG/ML 30 ML VIAL INJ ONE (03:20)
[2023-12-04] MEDS: PHENYLEPHRINE DRIP IVPREMIX 50 MG/250 ML BAG IV SCH ×2 (03:40→03:48)
[2023-12-04 04:43] LABS: Hematocrit 20.3 % (35-45); Hemoglobin 6.5 g/dL (11.5-14.3); Mean Corpuscular Hemoglobin 29.6 pg (27-33); Mean Corpuscular Hgb Conc 31.8 g/dL (31-36); Mean Corpuscular Volume 93.2 fL (80-97); Mean Platelet Volume 11.2 fL (7.5-11.2); Platelet Count 213 10^3/uL (150-450); Red Blood Count 2.18 10^6/uL (3.63-4.92); White Blood Count 39.3 10^3/uL (3.8-11.8)
[2023-12-04 05:02] LABS: ABS Basophils 0.1 10^3/uL (0.0-0.1); ABS Lymphocytes 1.6 10^3/uL (1.0-4.8); ABS Monocytes 2.9 10^3/uL (0.0-0.9); ABS Neutrophils 34.7 10^3/uL (1.5-7.6); ABS Nucleated RBC 1.68 10^3/ul; Anisocytosis 1+; Basophilic Stippling 1+; Eosinophil % 0.1 %; Nucleated Red Blood Cells % 4.3 %/100WBC (0.0-0.8); Polychromasia 2+
[2023-12-04 05:42] LABS: Calcium 8.1 mg/dL (8.6-10.3); Creatinine, Serum 2.31 mg/dL (0.51-0.95); Magnesium 1.8 mg/dL (1.9-2.7); Phosphorus 5.5 mg/dL (2.5-5.0); Potassium 4.7 mmol/L (3.5-5.0); eGFR CKD-EPI 22.6 (>60)
[2023-12-04] MEDS: Morphine 4 MG/ML VIAL (1 ml) ONE (06:06)
[2023-12-04 08:30] LABS: Platelet Count 206 10^3/ul (150-450)
[2023-12-04 08:50] LABS: Activated Partial Thrombo Time 26.9 seconds (26.0-38.0); INR 0.94 (0.83-1.13)
[2023-12-04 10:04] LABS: Vancomycin Random 22.1 mcg/mL
[2023-12-04 10:56] LABS: Schistocytes ABSENT
[2023-12-04] MEDS: Sulfur Hexaflouride MICROSPHR 25 MG VIAL IV ONE (11:22)
[2023-12-04] MEDS: Senna TAB 8.6 mg TAB PO SCH (11:53)
[2023-12-04] MEDS: Hydrocortisone INJ 100 MG/2ML 2 ML VIAL IV SCH (11:53)
[2023-12-04] MEDS: Acetaminophen IV 1 GM/100ML 1,000 MG/100 ML BAG IV PRN (12:24)
[2023-12-04 14:46] LABS: Hematocrit 23.2 % (35-45); Hemoglobin 7.3 g/dL (11.5-14.3); Mean Corpuscular Hemoglobin 28.2 pg (27-33); Mean Corpuscular Hgb Conc 31.4 g/dL (31-36); Mean Corpuscular Volume 89.8 fL (80-97); Mean Platelet Volume 11.3 fL (7.5-11.2); Platelet Count 196 10^3/uL (150-450); Red Blood Count 2.58 10^6/uL (3.63-4.92); White Blood Count 33.3 10^3/uL (3.8-11.8)
[2023-12-04 15:56] LABS: ABS Basophils 0.2 10^3/uL (0.0-0.1); ABS Lymphocytes 0.9 10^3/uL (1.0-4.8); ABS Monocytes 1.9 10^3/uL (0.0-0.9); ABS Neutrophils 30.4 10^3/uL (1.5-7.6); Anisocytosis 2+; Basophilic Stippling 2+; Lymphocyte % 2.7 %; Nucleated Red Blood Cells % 1.5 %/100WBC (0.0-0.8); Polychromasia 2+
[2023-12-04] MEDS ORDERED: Lactated Ringers 1000 ml BAG 1,000 ML IV SCH (18:00)
[2023-12-04] MEDS: Vancomycin 1000 MG in NS 0.9% 250 ML IVPB ONE (18:07)
[2023-12-04] MEDS: Albumin Human 25% 25 GM/100 ML BTL IV PRN (19:59)
[2023-12-05 04:35] LABS: Hematocrit 20.9 % (35-45); Hemoglobin 6.6 g/dL (11.5-14.3); Mean Corpuscular Hemoglobin 28.6 pg (27-33); Mean Corpuscular Hgb Conc 31.8 g/dL (31-36); Mean Corpuscular Volume 90.1 fL (80-97); Mean Platelet Volume 10.4 fL (7.5-11.2); Platelet Count 181 10^3/uL (150-450); Red Blood Count 2.32 10^6/uL (3.63-4.92); Red Cell Distribution Width 22.7 % (12-17); White Blood Count 29.8 10^3/uL (3.8-11.8)
[2023-12-05 05:24] LABS: Calcium 7.9 mg/dL (8.6-10.3); Creatinine, Serum 1.38 mg/dL (0.51-0.95); Magnesium 1.7 mg/dL (1.9-2.7); Phosphorus 3.4 mg/dL (2.5-5.0); Vancomycin Random 21.3 mcg/mL
[2023-12-05] MEDS: Magnesium Sulfate 2 gm BAG 2 GM/50 ML BAG IVPB ONE (05:50)
[2023-12-05] MEDS ORDERED: Vancomycin Trough Check NOTE FOLLOW UP ONE (06:00)
[2023-12-05 06:01] LABS: ABS Basophils 0.1 10^3/uL (0.0-0.1); ABS Lymphocytes 0.9 10^3/uL (1.0-4.8); ABS Monocytes 1.7 10^3/uL (0.0-0.9); ABS Neutrophils 27.1 10^3/uL (1.5-7.6); ABS Nucleated RBC 0.37 10^3/ul; Eosinophil % 0.1 %; Lymphocyte % 2.9 %; Nucleated Red Blood Cells % 1.2 %/100WBC (0.0-0.8)
[2023-12-05] MEDS: CALCIUM GLUCONATE 1GM/50ML NS 1 GM/50 ML BAG IV ONE (07:55)
[2023-12-05] MEDS: Vancomycin Random Level NOTE FOLLOW UP ONE (08:19)
[2023-12-05] MEDS: Polyethylene Glycol 3350 17 GM PACKET PO SCH (14:24)
[2023-12-05] MEDS: Vancomycin 1000 MG in NS 0.9% 250 ML IVPB ONE (18:33)
[2023-12-05] MEDS: LORazepam 2 mg VIAL 1 ml IV PUSH PRN (23:46)
[2023-12-06 04:40] LABS: Hematocrit 23.1 % (35-45); Hemoglobin 7.4 g/dL (11.5-14.3); Mean Corpuscular Hemoglobin 29.4 pg (27-33); Mean Corpuscular Hgb Conc 32.2 g/dL (31-36); Mean Corpuscular Volume 91.3 fL (80-97); Mean Platelet Volume 10.4 fL (7.5-11.2); Platelet Count 154 10^3/uL (150-450); Red Blood Count 2.53 10^6/uL (3.63-4.92); Red Cell Distribution Width 20.8 % (12-17); White Blood Count 19.1 10^3/uL (3.8-11.8)
[2023-12-06 05:14] LABS: Calcium 7.9 mg/dL (8.6-10.3); Creatinine, Serum 1.4 mg/dL (0.51-0.95); Magnesium 1.7 mg/dL (1.9-2.7); Phosphorus 2.2 mg/dL (2.5-5.0); Potassium 3.6 mmol/L (3.5-5.0); Vancomycin Random 21.4 mcg/mL; eGFR CKD-EPI 41.2 (>60)
[2023-12-06 05:40] LABS: Hepatitis B Surface Antigen Nonreactive (Nonreactive)
[2023-12-06] MEDS: Magnesium Sulfate 2 gm BAG 2 GM/50 ML BAG IVPB ONE (05:40)
[2023-12-06] MEDS: Potassium Phosphate IV 15 MMOL in NS 0.9% 250 ml 250 ML IVPB ONE (06:17)
[2023-12-06 06:29] LABS: ABS Basophils 0.1 10^3/uL (0.0-0.1); ABS Eosinophils 0.4 10^3/uL (0.0-0.5); ABS Lymphocytes 1.1 10^3/uL (1.0-4.8); ABS Monocytes 1.5 10^3/uL (0.0-0.9); ABS Nucleated RBC 0.15 10^3/ul; Anisocytosis 2+; Basophilic Stippling 1+; Lymphocyte % 5.9 %; Nucleated Red Blood Cells % 0.8 %/100WBC (0.0-0.8); Polychromasia 2+
[2023-12-06] MEDS: Hydrocortisone INJ 100 MG/2ML 2 ML VIAL IV SCH (07:50)
[2023-12-06] MEDS: Vancomycin Random Level NOTE FOLLOW UP ONE (08:00)
[2023-12-06] MEDS: Magic MouthWash1-BEN/MAAL/LIDO 180 ML BTL SWISH SPIT SCH (17:55)
[2023-12-06] MEDS: Nystatin SUSPENSION 100,000 UNITS/ML UDC PO SCH (17:55)
[2023-12-06] MEDS: Vancomycin 1000 MG in NS 0.9% 250 ML IVPB ONE (18:01)
[2023-12-06 21:08] LABS: Calcium 7.7 mg/dL (8.6-10.3); Creatinine, Serum 1.12 mg/dL (0.51-0.95); Potassium 3.8 mmol/L (3.5-5.0); eGFR CKD-EPI 53.9 (>60)
[2023-12-06] MEDS: Norepinephrine 16 MG/250mL NS 16,000 MCG/250 ML BAG IV SCH (23:52)
[2023-12-07 04:40] LABS: Hematocrit 23.5 % (35-45); Hemoglobin 7.7 g/dL (11.5-14.3); Mean Corpuscular Hemoglobin 30.2 pg (27-33); Mean Corpuscular Hgb Conc 32.6 g/dL (31-36); Mean Corpuscular Volume 92.6 fL (80-97); Mean Platelet Volume 10.2 fL (7.5-11.2); Platelet Count 171 10^3/uL (150-450); Red Blood Count 2.54 10^6/uL (3.63-4.92); Red Cell Distribution Width 21.7 % (12-17); White Blood Count 16.4 10^3/uL (3.8-11.8)
[2023-12-07 05:26] LABS: ABS Basophils 0.1 10^3/uL (0.0-0.1); ABS Eosinophils 0.5 10^3/uL (0.0-0.5); ABS Lymphocytes 0.8 10^3/uL (1.0-4.8); ABS Monocytes 1.8 10^3/uL (0.0-0.9); ABS Neutrophils 13.3 10^3/uL (1.5-7.6); ABS Nucleated RBC 0.09 10^3/ul; Anisocytosis 3+; Basophilic Stippling 1+; Eosinophil % 3.1 %; Lymphocyte % 4.9 %; Nucleated Red Blood Cells % 0.5 %/100WBC (0.0-0.8); Polychromasia 1+
[2023-12-07] MEDS: Vancomycin Random Level NOTE FOLLOW UP ONE (05:34)
[2023-12-07 05:39] LABS: Calcium 7.9 mg/dL (8.6-10.3); Creatinine, Serum 1.33 mg/dL (0.51-0.95); Magnesium 1.8 mg/dL (1.9-2.7); Phosphorus 2.6 mg/dL (2.5-5.0); Potassium 3.9 mmol/L (3.5-5.0); Vancomycin Random 23.8 mcg/mL; eGFR CKD-EPI 43.9 (>60)
[2023-12-07] MEDS ORDERED: Magnesium Sulfate 2 gm BAG 2 GM/50 ML BAG IVPB ONE (06:40)
[2023-12-07] MEDS: Magnesium Sulfate 2 gm BAG 2 GM/50 ML BAG IVPB ONE (07:52)
[2023-12-07] MEDS: Vancomycin 1000 MG in NS 0.9% 250 ML IVPB ONE (15:21)
[2023-12-08 04:38] LABS: Hematocrit 21.7 % (35-45); Mean Corpuscular Hemoglobin 30.3 pg (27-33); Mean Corpuscular Hgb Conc 32.4 g/dL (31-36); Mean Corpuscular Volume 93.6 fL (80-97); Mean Platelet Volume 10.3 fL (7.5-11.2); Platelet Count 150 10^3/uL (150-450); Red Blood Count 2.32 10^6/uL (3.63-4.92); Red Cell Distribution Width 23.6 % (12-17); White Blood Count 15.1 10^3/uL (3.8-11.8)
[2023-12-08 05:34] LABS: Creatinine, Serum 1.35 mg/dL (0.51-0.95); Magnesium 1.8 mg/dL (1.9-2.7); Potassium 3.8 mmol/L (3.5-5.0); eGFR CKD-EPI 43.1 (>60)
[2023-12-08 05:43] LABS: ABS Eosinophils 0.4 10^3/uL (0.0-0.5); ABS Lymphocytes 0.7 10^3/uL (1.0-4.8); ABS Monocytes 1.4 10^3/uL (0.0-0.9); ABS Neutrophils 12.5 10^3/uL (1.5-7.6); ABS Nucleated RBC 0.04 10^3/ul; Anisocytosis 2+; Basophilic Stippling 2+; Eosinophil % 2.8 %; Lymphocyte % 4.7 %; Nucleated Red Blood Cells % 0.3 %/100WBC (0.0-0.8); Polychromasia 2+
[2023-12-08] MEDS: HYDROmorphone 1 MG/1 ML SYRINGE IV SLOW PU PRN (15:19)
[2023-12-09 06:55] LABS: Hematocrit 22.8 % (35-45); Hemoglobin 7.5 g/dL (11.5-14.3); Mean Corpuscular Hemoglobin 30.9 pg (27-33); Mean Corpuscular Hgb Conc 32.9 g/dL (31-36); Platelet Count 187 10^3/uL (150-450); Red Blood Count 2.42 10^6/uL (3.63-4.92); Red Cell Distribution Width 23.3 % (12-17); White Blood Count 16.4 10^3/uL (3.8-11.8)
[2023-12-09 07:27] LABS: Calcium 8.3 mg/dL (8.6-10.3); Creatinine, Serum 1.03 mg/dL (0.51-0.95); Magnesium 1.6 mg/dL (1.9-2.7); Potassium 3.7 mmol/L (3.5-5.0); Vancomycin Random 14.3 mcg/mL; eGFR CKD-EPI 59.6 (>60)
[2023-12-09] MEDS: Vancomycin Random Level NOTE FOLLOW UP ONE (09:19)
[2023-12-09 10:07] LABS: ABS Basophils 0.1 10^3/uL (0.0-0.1); ABS Eosinophils 0.5 10^3/uL (0.0-0.5); ABS Lymphocytes 0.8 10^3/uL (1.0-4.8); ABS Monocytes 1.5 10^3/uL (0.0-0.9); ABS Neutrophils 13.5 10^3/uL (1.5-7.6); ABS Nucleated RBC 0.01 10^3/ul; Eosinophil % 2.8 %; Lymphocyte % 5.1 %; Nucleated Red Blood Cells % 0.1 %/100WBC (0.0-0.8)
[2023-12-09] MEDS: Magnesium Sulf 4 GM/100 ML IV 4,000 MG/100 ML BAG IVPB ONE (15:24)
[2023-12-09] MEDS: Vancomycin 1000 MG in NS 0.9% 250 ML IVPB ONE (18:29)
[2023-12-10 05:52] LABS: Hematocrit 23.5 % (35-45); Hemoglobin 7.4 g/dL (11.5-14.3); Mean Corpuscular Hemoglobin 29.8 pg (27-33); Mean Corpuscular Hgb Conc 31.5 g/dL (31-36); Mean Corpuscular Volume 94.3 fL (80-97); Mean Platelet Volume 9.9 fL (7.5-11.2); Platelet Count 235 10^3/uL (150-450); Red Blood Count 2.49 10^6/uL (3.63-4.92); Red Cell Distribution Width 23.1 % (12-17); White Blood Count 14.3 10^3/uL (3.8-11.8)
[2023-12-10 06:19] LABS: Calcium 8.2 mg/dL (8.6-10.3); Creatinine, Serum 1.56 mg/dL (0.51-0.95); Magnesium 2.5 mg/dL (1.9-2.7); Phosphorus 3.4 mg/dL (2.5-5.0); Potassium 3.8 mmol/L (3.5-5.0); eGFR CKD-EPI 36.2 (>60)
[2023-12-10 07:27] LABS: ABS Basophils 0.1 10^3/uL (0.0-0.1); ABS Eosinophils 0.4 10^3/uL (0.0-0.5); ABS Lymphocytes 0.6 10^3/uL (1.0-4.8); ABS Monocytes 1.1 10^3/uL (0.0-0.9); ABS Neutrophils 12.2 10^3/uL (1.5-7.6); ABS Nucleated RBC 0.01 10^3/ul; Anisocytosis 1+; Eosinophil % 2.6 %; Lymphocyte % 3.9 %
[2023-12-10] MEDS: Vancomycin Random Level NOTE FOLLOW UP ONE (09:24)
[2023-12-10] MEDS ORDERED: Enoxaparin 80 MG/0.8 ML SYR SUBCUT SCH (12:00)
[2023-12-10] MEDS: Enoxaparin 100 MG/ML SYR SUBCUT SCH (15:35)
[2023-12-10] MEDS: Furosemide 100 mg/10 ml IV VIAL IV SCH (15:37)
[2023-12-10] MEDS: Vancomycin 1000 MG in NS 0.9% 250 ML IVPB ONE (18:06)
[2023-12-11 04:45] LABS: Hematocrit 25.2 % (35-45); Hemoglobin 8.2 g/dL (11.5-14.3); Mean Corpuscular Hemoglobin 30.1 pg (27-33); Mean Corpuscular Hgb Conc 32.3 g/dL (31-36); Mean Corpuscular Volume 93.3 fL (80-97); Mean Platelet Volume 10.3 fL (7.5-11.2); Platelet Count 273 10^3/uL (150-450); Red Cell Distribution Width 22.7 % (12-17); White Blood Count 12.7 10^3/uL (3.8-11.8)
[2023-12-11 05:04] LABS: Calcium 6.6 mg/dL (8.6-10.3); Creatinine, Serum 1.13 mg/dL (0.51-0.95); Magnesium 1.6 mg/dL (1.9-2.7); Phosphorus 2.7 mg/dL (2.5-5.0); Potassium 3.1 mmol/L (3.5-5.0); Vancomycin Random 20.4 mcg/mL; eGFR CKD-EPI 53.3 (>60)
[2023-12-11] MEDS: Enoxaparin 100 MG/ML SYR SUBCUT SCH (05:22)
[2023-12-11] MEDS: Vancomycin Random Level NOTE FOLLOW UP ONE (05:31)
[2023-12-11 06:37] LABS: ABS Basophils 0.1 10^3/uL (0.0-0.1); ABS Eosinophils 0.4 10^3/uL (0.0-0.5); ABS Lymphocytes 0.6 10^3/uL (1.0-4.8); ABS Monocytes 0.9 10^3/uL (0.0-0.9); ABS Neutrophils 10.7 10^3/uL (1.5-7.6); ABS Nucleated RBC 0.01 10^3/ul; Eosinophil % 3.4 %; Lymphocyte % 4.8 %; Nucleated Red Blood Cells % 0.1 %/100WBC (0.0-0.8)
[2023-12-11] MEDS: Magnesium Sulf 4 GM/100 ML IV 4,000 MG/100 ML BAG IVPB ONE (09:10)
[2023-12-11] MEDS: Potassium Chlor 20 meq TAB.ER PO ONE (09:15)
[2023-12-12 04:58] LABS: Hematocrit 26.3 % (35-45); Hemoglobin 8.4 g/dL (11.5-14.3); Mean Corpuscular Hgb Conc 32.1 g/dL (31-36); Mean Corpuscular Volume 93.6 fL (80-97); Mean Platelet Volume 10.1 fL (7.5-11.2); Platelet Count 306 10^3/uL (150-450); Red Blood Count 2.81 10^6/uL (3.63-4.92); Red Cell Distribution Width 22.8 % (12-17); White Blood Count 11.9 10^3/uL (3.8-11.8)
[2023-12-12 05:09] LABS: Calcium 8.5 mg/dL (8.6-10.3); Creatinine, Serum 1.79 mg/dL (0.51-0.95); Potassium 3.7 mmol/L (3.5-5.0); eGFR CKD-EPI 30.7 (>60)
[2023-12-12 07:36] LABS: ABS Basophils 0.1 10^3/uL (0.0-0.1); ABS Eosinophils 0.4 10^3/uL (0.0-0.5); ABS Lymphocytes 0.6 10^3/uL (1.0-4.8); ABS Monocytes 0.7 10^3/uL (0.0-0.9); ABS Neutrophils 10.1 10^3/uL (1.5-7.6); ABS Nucleated RBC 0.01 10^3/ul; Eosinophil % 3.4 %; Nucleated Red Blood Cells % 0.1 %/100WBC (0.0-0.8)
[2023-12-12] MEDS: Alteplase (CATHFLO) 2 MG VIAL IV ONE (14:11)
[2023-12-12] MEDS: Vancomycin 1000 MG in NS 0.9% 250 ML IVPB ONE (17:54)
[2023-12-13 06:43] LABS: Hematocrit 26.1 % (35-45); Hemoglobin 8.4 g/dL (11.5-14.3); Mean Corpuscular Hemoglobin 30.1 pg (27-33); Mean Corpuscular Hgb Conc 32.1 g/dL (31-36); Mean Corpuscular Volume 93.8 fL (80-97); Mean Platelet Volume 10.2 fL (7.5-11.2); Platelet Count 324 10^3/uL (150-450); Red Blood Count 2.78 10^6/uL (3.63-4.92); Red Cell Distribution Width 22.5 % (12-17); White Blood Count 11.9 10^3/uL (3.8-11.8)
[2023-12-13 07:23] LABS: Albumin 2.6 g/dL (3.2-5.2); Albumin/Globulin Ratio 1.3 (1-3); Calcium 8.2 mg/dL (8.6-10.3); Creatinine, Serum 1.68 mg/dL (0.51-0.95); Potassium 3.9 mmol/L (3.5-5.0); Total Bilirubin 0.7 mg/dL (0.2-1.0); Total Protein 4.6 g/dL (6.4-8.9); eGFR CKD-EPI 33.1 (>60)
[2023-12-13] MEDS: Vancomycin Random Level NOTE FOLLOW UP ONE (07:39)
[2023-12-14 06:34] LABS: Hematocrit 24.6 % (35-45); Hemoglobin 7.9 g/dL (11.5-14.3); Mean Corpuscular Hemoglobin 30.3 pg (27-33); Mean Corpuscular Hgb Conc 32.4 g/dL (31-36); Mean Corpuscular Volume 93.6 fL (80-97); Mean Platelet Volume 9.9 fL (7.5-11.2); Platelet Count 329 10^3/uL (150-450); Red Blood Count 2.62 10^6/uL (3.63-4.92); Red Cell Distribution Width 22.8 % (12-17)
[2023-12-14 07:06] LABS: Calcium 8.2 mg/dL (8.6-10.3); Creatinine, Serum 1.82 mg/dL (0.51-0.95); Potassium 3.9 mmol/L (3.5-5.0); Vancomycin Random 17.8 mcg/mL; eGFR CKD-EPI 30.1 (>60)
[2023-12-14] MEDS: Vancomycin Random Level NOTE FOLLOW UP ONE (07:24)
[2023-12-14 09:55] LABS: Hepatitis B Core IgM Nonreactive (Nonreactive)
[2023-12-14 09:57] LABS: C Reactive Protein 170.33 mg/L (<8.01)
[2023-12-14] MEDS: Vancomycin 1000 MG in NS 0.9% 250 ML IVPB ONE (17:52)
[2023-12-15 12:03] LABS: Hematocrit 26.4 % (35-45); Hemoglobin 8.2 g/dL (11.5-14.3)
[2023-12-15 12:14] LABS: Activated Partial Thrombo Time 42.6 seconds (26.0-38.0); INR 1.49 (0.83-1.13)
[2023-12-16] MEDS: Nystatin TOP POWDER 15 GM BTL TOPICAL SCH (01:43)
[2023-12-16 05:35] LABS: Hematocrit 25.8 % (35-45); Hemoglobin 8.3 g/dL (11.5-14.3)
[2023-12-16 06:03] LABS: Calcium 8.3 mg/dL (8.6-10.3); Creatinine, Serum 1.83 mg/dL (0.51-0.95); Potassium 3.9 mmol/L (3.5-5.0); eGFR CKD-EPI 29.9 (>60)
[2023-12-16 14:45] LABS: Hemoglobin 9.2 g/dL (11.5-14.3)
[2023-12-16 18:20] LABS: Hematocrit 27.9 % (35-45); Hemoglobin 8.9 g/dL (11.5-14.3)
[2023-12-17 00:28] LABS: Hematocrit 25.6 % (35-45); Hemoglobin 8.3 g/dL (11.5-14.3)
[2023-12-17] MEDS ORDERED: Vancomycin Random Level NOTE FOLLOW UP ONE (06:00)
[2023-12-17 06:07] LABS: Hematocrit 25.1 % (35-45); Hemoglobin 8.1 g/dL (11.5-14.3)
[2023-12-17] MEDS ORDERED: NS 0.9% 1000 ml BAG 100 ML IV PRN (07:40)
[2023-12-17] MEDS ORDERED: Albumin Human 25% 25 GM/100 ML BTL IV PRN (07:40)
[2023-12-17] MEDS ORDERED: NS 0.9% 1000 ml BAG 200 ML IV PRN (07:40)
[2023-12-17] MEDS: Heparin 1,000 UNIT/ML 10 ml (10,000 UNITS) CATHLAB/DIALYSIS DIALYSIS PRN (08:42)
[2023-12-17 09:44] LABS: Calcium 8.3 mg/dL (8.6-10.3); Creatinine, Serum 1.79 mg/dL (0.51-0.95); Potassium 3.8 mmol/L (3.5-5.0); eGFR CKD-EPI 30.7 (>60)
[2023-12-17 13:00] LABS: Hematocrit 29.2 % (35-45); Hemoglobin 9.6 g/dL (11.5-14.3)
[2023-12-17 19:12] LABS: Hemoglobin 9.2 g/dL (11.5-14.3)
[2023-12-18 06:44] LABS: Hematocrit 26.6 % (35-45); Mean Corpuscular Hemoglobin 31.7 pg (27-33); Mean Corpuscular Hgb Conc 33.7 g/dL (31-36); Mean Corpuscular Volume 94.2 fL (80-97); Platelet Count 394 10^3/uL (150-450); Red Blood Count 2.83 10^6/uL (3.63-4.92); Red Cell Distribution Width 22.7 % (12-17); White Blood Count 9.5 10^3/uL (3.8-11.8)
[2023-12-18 08:20] LABS: Calcium 8.2 mg/dL (8.6-10.3); Creatinine, Serum 1.4 mg/dL (0.51-0.95); Potassium 3.5 mmol/L (3.5-5.0); eGFR CKD-EPI 41.2 (>60)
[2023-12-19 08:20] LABS: Hematocrit 28.7 % (35-45); Hemoglobin 9.4 g/dL (11.5-14.3); Mean Corpuscular Hemoglobin 30.9 pg (27-33); Mean Corpuscular Hgb Conc 32.8 g/dL (31-36); Mean Corpuscular Volume 94.4 fL (80-97); Mean Platelet Volume 9.8 fL (7.5-11.2); Platelet Count 465 10^3/uL (150-450); Red Blood Count 3.04 10^6/uL (3.63-4.92); Red Cell Distribution Width 23.2 % (12-17); White Blood Count 9.7 10^3/uL (3.8-11.8)
[2023-12-19 08:35] LABS: Calcium 8.8 mg/dL (8.6-10.3); Creatinine, Serum 1.68 mg/dL (0.51-0.95); eGFR CKD-EPI 33.1 (>60)
[2023-12-19] MEDS ORDERED: NS 0.9% 1000 ml BAG 100 ML IV PRN (09:26)
[2023-12-19] MEDS ORDERED: NS 0.9% 1000 ml BAG 200 ML IV PRN (09:26)
[2023-12-19] MEDS: Heparin 1,000 UNIT/ML 10 ml (10,000 UNITS) CATHLAB/DIALYSIS DIALYSIS PRN (10:10)
[2023-12-19 10:53] LABS: C Reactive Protein 77.34 mg/L (<8.01); Magnesium 1.6 mg/dL (1.9-2.7)
[2023-12-19] MEDS: Potassium Chlor 20 meq TAB.ER PO ONE (11:53)
[2023-12-19] MEDS: Magnesium Sulfate 2 gm BAG 2 GM/50 ML BAG IVPB ONE (13:56)
[2023-12-19] MEDS: Lidocaine PATCH 5% PATCH TRANSDERM PRN (14:02)
[2023-12-20 06:49] LABS: Hematocrit 29.1 % (35-45); Hemoglobin 9.5 g/dL (11.5-14.3); Mean Corpuscular Hemoglobin 31.1 pg (27-33); Mean Corpuscular Hgb Conc 32.8 g/dL (31-36); Mean Platelet Volume 10.2 fL (7.5-11.2); Platelet Count 457 10^3/uL (150-450); Red Blood Count 3.07 10^6/uL (3.63-4.92); Red Cell Distribution Width 23.2 % (12-17)
[2023-12-20 07:17] LABS: Calcium 8.7 mg/dL (8.6-10.3); Creatinine, Serum 1.48 mg/dL (0.51-0.95); Magnesium 2.1 mg/dL (1.9-2.7); Potassium 3.4 mmol/L (3.5-5.0); eGFR CKD-EPI 38.6 (>60)
[2023-12-20 08:13] LABS: ABS Basophils 0.2 10^3/uL (0.0-0.1); ABS Eosinophils 0.6 10^3/uL (0.0-0.5); ABS Lymphocytes 0.7 10^3/uL (1.0-4.8); ABS Monocytes 0.6 10^3/uL (0.0-0.9); Anisocytosis 2+; Eosinophil % 6.9 %; Lymphocyte % 8.5 %; Nucleated Red Blood Cells % 0.1 %/100WBC (0.0-0.8)
[2023-12-20] MEDS ORDERED: Heparin 2 UNITS/ML IVPREMIX 1,000 UNIT/500 ML BAG IV ONE (11:49)
[2023-12-20] MEDS ORDERED: fentaNYL 100 mcg/2 ml 50 MCG/ML VIAL ONE (11:53)
[2023-12-20] MEDS ORDERED: Lidocaine 1% VIAL 10 MG/ML 30 ML VIAL ONE (11:53)
[2023-12-20] MEDS ORDERED: Midazolam 5 mg/5 ml VIAL 1 mg/ml 5 ml VIAL (5 mg) ONE (11:53)
[2023-12-20] MEDS ORDERED: Heparin 1,000 UNIT/ML 10 ml (10,000 UNITS) CATHLAB/DIALYSIS ONE (12:30)
[2023-12-20] MEDS ORDERED: Heparin 5000 UNITS/ML 1 mL VIAL ONE (12:30)
[2023-12-20] MEDS: Clindamycin 600 MG/D5W BAG 600 MG/50 ML BAG IV ONE (13:45)
[2023-12-21 04:59] LABS: Hematocrit 30.2 % (35-45); Hemoglobin 9.7 g/dL (11.5-14.3); Mean Corpuscular Hemoglobin 30.3 pg (27-33); Mean Corpuscular Hgb Conc 31.9 g/dL (31-36); Mean Corpuscular Volume 94.9 fL (80-97); Mean Platelet Volume 10.1 fL (7.5-11.2); Platelet Count 481 10^3/uL (150-450); Red Blood Count 3.19 10^6/uL (3.63-4.92); Red Cell Distribution Width 23.3 % (12-17); White Blood Count 8.1 10^3/uL (3.8-11.8)
[2023-12-21 06:19] LABS: Calcium 8.9 mg/dL (8.6-10.3); Creatinine, Serum 1.85 mg/dL (0.51-0.95); Potassium 3.7 mmol/L (3.5-5.0); eGFR CKD-EPI 29.5 (>60)
[2023-12-21 07:12] LABS: ABS Eosinophils 0.5 10^3/uL (0.0-0.5); ABS Lymphocytes 0.6 10^3/uL (1.0-4.8); ABS Monocytes 0.5 10^3/uL (0.0-0.9); ABS Neutrophils 6.4 10^3/uL (1.5-7.6); Anisocytosis 2+; Eosinophil % 6.6 %; Lymphocyte % 7.4 %
[2023-12-21 11:56] LABS: Coagulation Factor XI 173 % (55 - 150)
[2023-12-21 12:14] LABS: Coagulation F VIII Activity 534 % (55 - 200); von Willebrand Factor Activity 515 % (55 - 200)
[2023-12-22 10:01] LABS: Hematocrit 30.2 % (35-45); Hemoglobin 9.7 g/dL (11.5-14.3); Mean Corpuscular Hemoglobin 30.7 pg (27-33); Mean Corpuscular Hgb Conc 32.2 g/dL (31-36); Mean Corpuscular Volume 95.3 fL (80-97); Mean Platelet Volume 10.1 fL (7.5-11.2); Platelet Count 501 10^3/uL (150-450); Red Blood Count 3.17 10^6/uL (3.63-4.92); Red Cell Distribution Width 22.9 % (12-17); White Blood Count 6.6 10^3/uL (3.8-11.8)
[2023-12-22 10:47] LABS: Calcium 8.5 mg/dL (8.6-10.3); Creatinine, Serum 1.45 mg/dL (0.51-0.95); Potassium 3.8 mmol/L (3.5-5.0); eGFR CKD-EPI 39.5 (>60)
[2023-12-22 10:58] LABS: ABS Eosinophils 0.5 10^3/uL (0.0-0.5); ABS Lymphocytes 0.7 10^3/uL (1.0-4.8); ABS Monocytes 0.6 10^3/uL (0.0-0.9); ABS Neutrophils 4.9 10^3/uL (1.5-7.6); ABS Nucleated RBC 0.01 10^3/ul; Eosinophil % 7.1 %; Nucleated Red Blood Cells % 0.1 %/100WBC (0.0-0.8)
[2023-12-23] MEDS: Albuterol HFA INHALER 8 gm MDI INH PRN (10:11)
[2023-12-23 13:03] LABS: Calcium 8.6 mg/dL (8.6-10.3); Creatinine, Serum 1.84 mg/dL (0.51-0.95); Potassium 3.6 mmol/L (3.5-5.0); eGFR CKD-EPI 29.7 (>60)
[2023-12-23] MEDS: Lactated Ringers 1000 ml BAG 1,000 ML IV ONE (20:38)
[2023-12-23 20:39] LABS: Hemoglobin 9.9 g/dL (11.5-14.3)
[2023-12-23 21:04] LABS: Hematocrit 28.5 % (35-45); Hemoglobin 9.4 g/dL (11.5-14.3)
[2023-12-24 06:54] LABS: Hemoglobin 9.5 g/dL (11.5-14.3); Mean Corpuscular Hemoglobin 30.4 pg (27-33); Mean Corpuscular Hgb Conc 31.7 g/dL (31-36); Mean Corpuscular Volume 95.7 fL (80-97); Mean Platelet Volume 10.3 fL (7.5-11.2); Platelet Count 415 10^3/uL (150-450); Red Blood Count 3.13 10^6/uL (3.63-4.92); Red Cell Distribution Width 23.3 % (12-17); White Blood Count 7.2 10^3/uL (3.8-11.8)
[2023-12-24 07:08] LABS: Calcium 8.5 mg/dL (8.6-10.3); Creatinine, Serum 2.01 mg/dL (0.51-0.95); Potassium 3.4 mmol/L (3.5-5.0); eGFR CKD-EPI 26.7 (>60)
[2023-12-24 08:16] LABS: ABS Eosinophils 0.6 10^3/uL (0.0-0.5); ABS Lymphocytes 0.7 10^3/uL (1.0-4.8); ABS Monocytes 0.8 10^3/uL (0.0-0.9); ABS Neutrophils 5.1 10^3/uL (1.5-7.6); ABS Nucleated RBC 0.01 10^3/ul; Eosinophil % 8.5 %; Lymphocyte % 9.3 %; Nucleated Red Blood Cells % 0.1 %/100WBC (0.0-0.8)
[2023-12-24] MEDS: Albumin Human 25% 25 GM/100 ML BTL IV PRN (11:14)
[2023-12-24 14:11] VITALS: BP 97/56
== END 2023-12-24 16:20 | DRG 871 ==
LOC: ED 23:22 → SUATTDRO 12-02 00:26 → EDHOLD 12-02 00:26 → ICU 12-02 01:51 → SSU 12-08 09:38
PROVIDERS: ADMIT Hospitalist; ATTEND Hospitalist

== ENCOUNTER 2024-01-05 14:19 | Inpatient (IN) ==
[2024-01-05] MEDS: NS 0.9% 500 ml BAG 500 ML IV ONE (15:50)
[2024-01-05 15:55] LABS: ABS Basophils 0.1 10^3/uL (0.0-0.1); ABS Eosinophils 0.8 10^3/uL (0.0-0.5); ABS Lymphocytes 0.7 10^3/uL (1.0-4.8); ABS Monocytes 0.7 10^3/uL (0.0-0.9); ABS Neutrophils 4.8 10^3/uL (1.5-7.6); Eosinophil % 10.8 %; Hematocrit 32.2 % (35-45); Hemoglobin 10.3 g/dL (11.5-14.3); Lymphocyte % 9.7 %; Mean Corpuscular Hemoglobin 30.3 pg (27-33); Mean Corpuscular Hgb Conc 32.2 g/dL (31-36); Mean Corpuscular Volume 94.1 fL (80-97); Mean Platelet Volume 11.5 fL (7.5-11.2); Platelet Count 258 10^3/uL (150-450); Red Blood Count 3.42 10^6/uL (3.63-4.92); Red Cell Distribution Width 19.1 % (12-17)
[2024-01-05 16:43] LABS: Albumin 2.9 g/dL (3.2-5.2); Albumin/Globulin Ratio 1.4 (1-3); C Reactive Protein 24.21 mg/L (<8.01); Calcium 8.4 mg/dL (8.6-10.3); Creatinine, Serum 2.89 mg/dL (0.51-0.95); Globulin 2.1 g/dL (2-4); Potassium 4.2 mmol/L (3.5-5.0); Total Bilirubin 0.4 mg/dL (0.2-1.0); eGFR CKD-EPI 17.3 (>60)
[2024-01-05 16:53] LABS: INR 1.54 (0.85-1.14)
[2024-01-05 17:07] LABS: High Sensitivity Troponin 1 Hr 5 pg/mL (<15)
[2024-01-05] MEDS: NS 0.9% 250 ml 250 ML IV ONE (18:45)
[2024-01-05] MEDS: Ondansetron 4 mg VIAL 2 MG/ML 2 ml VIAL IV ONE ×2 (18:45→21:12)
[2024-01-05 21:03] LABS: Urine Appearance Turbid; Urine Bacteria Absent /HPF (Absent); Urine Bilirubin 1+ (Negative); Urine Blood 1+ (Negative); Urine Color Yellow; Urine Glucose Negative (Negative); Urine Ketones Negative (Negative); Urine Nitrite Negative (Negative); Urine Protein 1+ (>=30 mg/dL) (Negative); Urine Red Blood Cell 2+(6-10/hpf) /HPF (0-Trace); Urine Specific Gravity 1.022 (1.002-1.030); Urine Squamous Epithelial Cell Present /HPF (Absent); Urine Urobilinogen Negative (Negative); Urine White Blood Cell 3+(>20/hpf) /HPF (0-Trace)
[2024-01-05] MEDS ORDERED: Albuterol HFA INHALER 8 gm MDI INH PRN (22:23)
[2024-01-05] MEDS ORDERED: Polyethylene Glycol 3350 17 GM PACKET PO PRN (22:23)
[2024-01-05] MEDS: Meropenem 500MG PREMIX(*) 500 MG/50 ML BAG IV SCH (22:43)
[2024-01-06] MEDS ORDERED: Norepinephrine 4 MG/250mL D5W 4,000 MCG/250 ML BAG IV SCH (03:00)
[2024-01-06 06:54] LABS: ABS Eosinophils 0.8 10^3/uL (0.0-0.5); ABS Lymphocytes 0.9 10^3/uL (1.0-4.8); ABS Monocytes 0.7 10^3/uL (0.0-0.9); ABS Neutrophils 4.3 10^3/uL (1.5-7.6); ABS Nucleated RBC 0.02 10^3/ul; Eosinophil % 11.3 %; Hematocrit 33.6 % (35-45); Hemoglobin 10.6 g/dL (11.5-14.3); Lymphocyte % 13.2 %; Mean Corpuscular Hemoglobin 31.1 pg (27-33); Mean Corpuscular Hgb Conc 31.5 g/dL (31-36); Mean Corpuscular Volume 98.8 fL (80-97); Mean Platelet Volume 10.5 fL (7.5-11.2); Nucleated Red Blood Cells % 0.3 %/100WBC (0.0-0.8); Platelet Count 185 10^3/uL (150-450); Red Cell Distribution Width 19.5 % (12-17); White Blood Count 6.7 10^3/uL (3.8-11.8)
[2024-01-06 07:24] LABS: ALT 12 U/L (7-52); Albumin 2.8 g/dL (3.2-5.2); Albumin/Globulin Ratio 1.3 (1-3); Alkaline Phosphatase 134 U/L (35-149); Anion Gap 11 mmol/L (2-16); Blood Urea Nitrogen 22 mg/dL (6-24); C Reactive Protein 20.97 mg/L (<8.01); CO2 Carbon Dioxide 21 mmol/L (22-32); Calcium 8.1 mg/dL (8.6-10.3); Chloride 100 mmol/L (101-111); Creatinine, Serum 3.22 mg/dL (0.51-0.95); Globulin 2.2 g/dL (2-4); Glucose 72 mg/dL (70-100); Sodium 132 mmol/L (135-145); Total Bilirubin 0.4 mg/dL (0.2-1.0); eGFR CKD-EPI 15.2 (>60)
[2024-01-06] MEDS: Miconazole TOPICAL CREAM 2% 30 GM TOPICAL SCH (08:08)
[2024-01-06] MEDS: Clotrimazole 1% CREAM 45 GM TOPICAL SCH (08:18)
[2024-01-06 08:41] LABS: Magnesium 1.9 mg/dL (1.9-2.7); Potassium Redraw 4.5 mmol/L (3.5-5.0)
[2024-01-06] MEDS ORDERED: NS 0.9% 1000 ml BAG 200 ML IV PRN (14:27)
[2024-01-06] MEDS ORDERED: NS 0.9% 1000 ml BAG 100 ML IV PRN (14:27)
[2024-01-06] MEDS ORDERED: Albumin Human 25% 25 GM/100 ML BTL IV PRN (14:27)
[2024-01-06 15:38] LABS: Hepatitis B Surface Ab Not Immune (Immune)
[2024-01-07 06:34] LABS: Hematocrit 30.7 % (35-45); Mean Corpuscular Hemoglobin 30.8 pg (27-33); Mean Corpuscular Hgb Conc 32.7 g/dL (31-36); Mean Corpuscular Volume 94.3 fL (80-97); Mean Platelet Volume 10.6 fL (7.5-11.2); Platelet Count 236 10^3/uL (150-450); Red Blood Count 3.26 10^6/uL (3.63-4.92); Red Cell Distribution Width 19.5 % (12-17); White Blood Count 7.7 10^3/uL (3.8-11.8)
[2024-01-07 06:50] LABS: Calcium 8.5 mg/dL (8.6-10.3); Creatinine, Serum 3.79 mg/dL (0.51-0.95); Potassium 4.4 mmol/L (3.5-5.0); eGFR CKD-EPI 12.5 (>60)
[2024-01-07 08:06] LABS: ABS Basophils 0.1 10^3/uL (0.0-0.1); ABS Lymphocytes 0.8 10^3/uL (1.0-4.8); ABS Monocytes 0.7 10^3/uL (0.0-0.9); ABS Neutrophils 5.2 10^3/uL (1.5-7.6); Eosinophil % 12.7 %; Lymphocyte % 10.3 %
[2024-01-07 08:15] LABS: Hepatitis B Surface Antigen Nonreactive (Nonreactive)
[2024-01-07] MEDS: Meropenem 500MG PREMIX(*) 500 MG/50 ML BAG IV SCH (11:26)
[2024-01-07] MEDS ORDERED: Vancomycin per Pharmacy 1 EA NOTE FOLLOW UP SCH (12:00)
[2024-01-07] MEDS: Vancomycin 1,250 MG IV x ONCE IVPB ONE (12:08)
[2024-01-07] MEDS ORDERED: Sulfur Hexaflouride MICROSPHR 25 MG VIAL IV PRN (13:51)
[2024-01-07] MEDS: Heparin 1,000 UNIT/ML 10 ml (10,000 UNITS) CATHLAB/DIALYSIS DIALYSIS PRN (14:07)
[2024-01-09] MEDS ORDERED: Vancomycin Random Level NOTE FOLLOW UP ONE (06:00)
[2024-01-09] MEDS: Senna TAB 8.6 mg TAB PO PRN (12:29)
[2024-01-09] MEDS: Ondansetron 4 mg VIAL 2 MG/ML 2 ml VIAL IV PRN (12:46)
[2024-01-09 14:58] VITALS: BP 100/60
== END 2024-01-09 15:30 | DRG 315 ==
LOC: ED 14:19 → EDHOLD 14:19 → SSU 22:24 → SUATTDRO 01-06 10:25 → SSU 01-09 12:04
PROVIDERS: ADMIT Hospitalist; ATTEND Student in an Organized Health Care Education/Training Program

== ENCOUNTER 2024-02-26 11:50 | Inpatient (IN) ==
[2024-02-26 13:46] LABS: ABS Basophils 0.1 10^3/uL (0.0-0.1); ABS Eosinophils 0.8 10^3/uL (0.0-0.5); ABS Lymphocytes 0.8 10^3/uL (1.0-4.8); ABS Monocytes 0.8 10^3/uL (0.0-0.9); ABS Neutrophils 4.6 10^3/uL (1.5-7.6); Eosinophil % 11.6 %; Hematocrit 34.8 % (35-45); Hemoglobin 11.4 g/dL (11.5-14.3); Lymphocyte % 10.9 %; Mean Corpuscular Hemoglobin 29.5 pg (27-33); Mean Corpuscular Hgb Conc 32.7 g/dL (31-36); Mean Corpuscular Volume 90.2 fL (80-97); Mean Platelet Volume 10.6 fL (7.5-11.2); Nucleated Red Blood Cells % 0.1 %/100WBC (0.0-0.8); Platelet Count 326 10^3/uL (150-450); Red Blood Count 3.86 10^6/uL (3.63-4.92); Red Cell Distribution Width 15.7 % (12-17)
[2024-02-26 14:18] LABS: Albumin 2.8 g/dL (3.2-5.2); Albumin/Globulin Ratio 1.2 (1-3); Calcium 8.6 mg/dL (8.6-10.3); Creatinine, Serum 3.7 mg/dL (0.51-0.95); Globulin 2.4 g/dL (2-4); Magnesium 1.9 mg/dL (1.9-2.7); Potassium 4.5 mmol/L (3.5-5.0); Total Bilirubin 0.4 mg/dL (0.2-1.0); Total Protein 5.2 g/dL (6.4-8.9); eGFR CKD-EPI 12.8 (>60)
[2024-02-26] MEDS: Iodixanol 320 (CONTRAST) 100 ML SDV IV ONE (15:21)
[2024-02-27] MEDS ORDERED: Albuterol HFA INHALER 8 gm MDI INH PRN (02:04)
[2024-02-27] MEDS ORDERED: NS 0.9% 1000 ml BAG 200 ML IV PRN (07:42)
[2024-02-27] MEDS ORDERED: NS 0.9% 1000 ml BAG 100 ML IV PRN (07:42)
[2024-02-27] MEDS: NS 0.9% 1000 ml BAG 1,000 ML IV ONE (08:24)
[2024-02-27] MEDS: Albumin Human 25% 25 GM/100 ML BTL IV PRN (10:16)
[2024-02-27] MEDS: Heparin 1,000 UNIT/ML 10 ml (10,000 UNITS) CATHLAB/DIALYSIS DIALYSIS PRN (10:16)
[2024-02-27 17:26] LABS: ABS Basophils 0.1 10^3/uL (0.0-0.1); ABS Eosinophils 0.7 10^3/uL (0.0-0.5); ABS Lymphocytes 0.5 10^3/uL (1.0-4.8); ABS Monocytes 0.7 10^3/uL (0.0-0.9); ABS Neutrophils 4.4 10^3/uL (1.5-7.6); Eosinophil % 11.7 %; Hematocrit 30.7 % (35-45); Lymphocyte % 7.4 %; Mean Corpuscular Hemoglobin 29.3 pg (27-33); Mean Corpuscular Hgb Conc 32.4 g/dL (31-36); Mean Corpuscular Volume 90.2 fL (80-97); Mean Platelet Volume 10.6 fL (7.5-11.2); Nucleated Red Blood Cells % 0.1 %/100WBC (0.0-0.8); Platelet Count 285 10^3/uL (150-450); Red Cell Distribution Width 16.1 % (12-17); White Blood Count 6.4 10^3/uL (3.8-11.8)
[2024-02-27 22:42] LABS: Hepatitis B Surface Antigen Nonreactive (Nonreactive)
[2024-02-27 22:59] LABS: Hepatitis B Surface Ab Not Immune (Immune)
[2024-02-28 05:27] LABS: ABS Basophils 0.1 10^3/uL (0.0-0.1); ABS Eosinophils 0.8 10^3/uL (0.0-0.5); ABS Lymphocytes 0.6 10^3/uL (1.0-4.8); ABS Monocytes 0.8 10^3/uL (0.0-0.9); ABS Neutrophils 3.6 10^3/uL (1.5-7.6); Eosinophil % 13.6 %; Hematocrit 31.1 % (35-45); Lymphocyte % 9.7 %; Mean Corpuscular Hemoglobin 29.5 pg (27-33); Mean Corpuscular Hgb Conc 32.3 g/dL (31-36); Mean Corpuscular Volume 91.2 fL (80-97); Mean Platelet Volume 10.5 fL (7.5-11.2); Nucleated Red Blood Cells % 0.1 %/100WBC (0.0-0.8); Platelet Count 254 10^3/uL (150-450); Red Blood Count 3.41 10^6/uL (3.63-4.92); Red Cell Distribution Width 16.2 % (12-17); White Blood Count 5.8 10^3/uL (3.8-11.8)
[2024-02-28 14:33] VITALS: BP 90/58
== END 2024-02-28 18:10 | DRG 91 ==
LOC: EDHOLD 11:50 → ED 11:50 → MEDTELE 02-27 13:55
PROVIDERS: ADMIT Student in an Organized Health Care Education/Training Program; ATTEND Internal Medicine

== ENCOUNTER 2024-03-30 22:47 | Inpatient (IN) ==
[2024-03-31 00:42] LABS: ABS Basophils 0.2 10^3/uL (0.0-0.1); ABS Lymphocytes 0.9 10^3/uL (1.0-4.8); ABS Monocytes 0.5 10^3/uL (0.0-0.9); ABS Neutrophils 7.4 10^3/uL (1.5-7.6); ABS Nucleated RBC 0.02 10^3/ul; Eosinophil % 0.5 %; Hematocrit 29.8 % (35-45); Mean Corpuscular Hemoglobin 28.3 pg (27-33); Mean Corpuscular Hgb Conc 33.6 g/dL (31-36); Mean Corpuscular Volume 84.1 fL (80-97); Mean Platelet Volume 10.4 fL (7.5-11.2); Nucleated Red Blood Cells % 0.2 %/100WBC (0.0-0.8); Platelet Count 238 10^3/uL (150-450); Red Blood Count 3.54 10^6/uL (3.63-4.92); Red Cell Distribution Width 16.3 % (12-17); White Blood Count 9.1 10^3/uL (3.8-11.8)
[2024-03-31 00:49] LABS: Albumin 2.4 g/dL (3.2-5.2); Albumin/Globulin Ratio 1.3 (1-3); Calcium 7.8 mg/dL (8.6-10.3); Creatinine, Serum 1.99 mg/dL (0.51-0.95); Globulin 1.9 g/dL (2-4); Magnesium 1.5 mg/dL (1.9-2.7); Potassium 3.6 mmol/L (3.5-5.0); Total Bilirubin 0.7 mg/dL (0.2-1.0); Total Protein 4.3 g/dL (6.4-8.9)
[2024-03-31 00:52] LABS: Activated Partial Thrombo Time 26.6 seconds (26.0-38.0); INR 1.26 (0.85-1.14)
[2024-03-31] MEDS ORDERED: Norepinephrine 4 MG/250mL D5W 4,000 MCG/250 ML BAG IV ONE (02:30)
[2024-03-31] MEDS: Lactated Ringers 1000 ml BAG 1,000 ML IV ONE (02:35)
[2024-03-31] MEDS: Norepinephrine 4 MG/250mL D5W 4,000 MCG/250 ML BAG IV SCH ×2 (03:00→05:34)
[2024-03-31] MEDS ORDERED: Vancomycin per Pharmacy 1 EA NOTE FOLLOW UP SCH ×2 (06:00→19:00)
[2024-03-31] MEDS: Vancomycin 1,000 MG in NS 0.9% 250 ml 250 ML IVPB ONE (06:18)
[2024-03-31] MEDS: Albumin Human 5% 12.5 GM/250 ML BTL IV ONE (06:44)
[2024-03-31 06:59] LABS: Hematocrit 29.7 % (35-45); Hemoglobin 9.8 g/dL (11.5-14.3); Mean Corpuscular Hemoglobin 27.8 pg (27-33); Mean Corpuscular Hgb Conc 33.1 g/dL (31-36); Mean Corpuscular Volume 84.1 fL (80-97); Platelet Count 277 10^3/uL (150-450); Red Blood Count 3.53 10^6/uL (3.63-4.92); Red Cell Distribution Width 16.1 % (12-17); White Blood Count 13.5 10^3/uL (3.8-11.8)
[2024-03-31] MEDS ORDERED: NS 0.9% 1000 ml BAG 100 ML IV PRN (07:19)
[2024-03-31] MEDS ORDERED: NS 0.9% 1000 ml BAG 200 ML IV PRN (07:19)
[2024-03-31] MEDS: Piperacillin/Tazobac 3.375 BAG 3.375 GM/100 ML BAG IV ONE (07:37)
[2024-03-31 07:41] LABS: Albumin 2.4 g/dL (3.2-5.2); Albumin/Globulin Ratio 1.2 (1-3); Calcium 7.8 mg/dL (8.6-10.3); Creatinine, Serum 2.2 mg/dL (0.51-0.95); Magnesium 1.5 mg/dL (1.9-2.7); Potassium 3.4 mmol/L (3.5-5.0); Total Bilirubin 0.8 mg/dL (0.2-1.0); Total Protein 4.4 g/dL (6.4-8.9)
[2024-03-31 08:13] LABS: RBC Morphology Normal (Normal)
[2024-03-31] MEDS: Magnesium Sulfate 2 gm BAG 2 GM/50 ML BAG IVPB ONE (09:12)
[2024-03-31] MEDS: Vancomycin 1,750 MG in NS 0.9% 500 ml BAG 500 ML IVPB ONE (09:38)
[2024-03-31] MEDS ORDERED: Cyclobenzaprine 5 mg TAB (NF) PO PRN (10:02)
[2024-03-31] MEDS ORDERED: Ondansetron ODT 4 mg TAB 4 MG TAB PO PRN (10:02)
[2024-03-31] MEDS ORDERED: Albuterol HFA INHALER 8 gm MDI INH PRN (10:02)
[2024-03-31] MEDS: Clotrimazole 1% CREAM 45 GM TOPICAL SCH (13:07)
[2024-03-31] MEDS: Norepinephrine 16 MG/250mL NS 16,000 MCG/250 ML BAG IV SCH (14:26)
[2024-03-31] MEDS: Metoclopramide 5 MG/ML VIAL (10 mg) IV SLOW PU ONE (14:34)
[2024-03-31 14:46] LABS: Hepatitis B Surface Antigen Nonreactive (Nonreactive)
[2024-03-31 15:04] LABS: Hepatitis B Surface Ab Not Immune (Immune)
[2024-03-31] MEDS: NS 0.9% 500 ml BAG 500 ML IV ONE ×2 (16:00→16:03)
[2024-03-31 18:47] LABS: Hematocrit 28.8 % (35-45); Hemoglobin 9.5 g/dL (11.5-14.3); Mean Corpuscular Hemoglobin 27.6 pg (27-33); Mean Corpuscular Hgb Conc 33.1 g/dL (31-36); Mean Corpuscular Volume 83.5 fL (80-97); Red Blood Count 3.46 10^6/uL (3.63-4.92); Red Cell Distribution Width 16.4 % (12-17)
[2024-03-31] MEDS ORDERED: Zosyn per Pharmacy NOTE FOLLOW UP SCH (19:00)
[2024-03-31 19:57] LABS: Anisocytosis 1+; Polychromasia 1+
[2024-03-31 19:58] LABS: Mean Platelet Volume 9.8 fL (7.5-11.2); Platelet Count 271 10^3/uL (150-450)
[2024-03-31] MEDS: ZOSYN 3.375 GM x ONE DOSE over 30 miuntes IV (20:44)
[2024-04-01] MEDS: Clotrimazole 1% CREAM 30 gm TOPICAL SCH (00:22)
[2024-04-01] MEDS: ZOSYN 3.375 GM Q12H per EXTENDED INFUSION IV SCH (01:40)
[2024-04-01] MEDS ORDERED: Vasopressin 100 UNITS in D5W 250 ml BAG 245 ML IV SCH (03:30)
[2024-04-01] MEDS: VASOPRESSIN IVPREMIX BTL 40 UNIT/100 ML BTL IV SCH (04:13)
[2024-04-01] MEDS: D5W 250 ml BAG 250 ML ONE (04:20)
[2024-04-01 06:12] LABS: Albumin 2.3 g/dL (3.2-5.2); Albumin/Globulin Ratio 1.3 (1-3); Calcium 7.5 mg/dL (8.6-10.3); Creatinine, Serum 2.59 mg/dL (0.51-0.95); Globulin 1.8 g/dL (2-4); Magnesium 1.9 mg/dL (1.9-2.7); Potassium 3.6 mmol/L (3.5-5.0); Total Protein 4.1 g/dL (6.4-8.9); Vancomycin Random 20.6 mcg/mL; eGFR CKD-EPI 19.7 (>60)
[2024-04-01] MEDS: Vancomycin Random Level NOTE FOLLOW UP ONE (06:21)
[2024-04-01 07:09] LABS: Hemoglobin 9.4 g/dL (11.5-14.3); Mean Corpuscular Hemoglobin 28.2 pg (27-33); Mean Corpuscular Hgb Conc 33.7 g/dL (31-36); Mean Corpuscular Volume 83.7 fL (80-97); Mean Platelet Volume 9.9 fL (7.5-11.2); Platelet Count 253 10^3/uL (150-450); Red Blood Count 3.34 10^6/uL (3.63-4.92); Red Cell Distribution Width 16.3 % (12-17); White Blood Count 10.8 10^3/uL (3.8-11.8)
[2024-04-01 07:15] LABS: Anisocytosis 1+; Target Cells 1+
[2024-04-01 07:16] LABS: ABS Neutrophils 9.9 10^3/ul (1.5-7.6)
[2024-04-01 07:17] LABS: ABS Lymphocytes 0.4 10^3/ul (1.0-4.8); ABS Monocytes 0.4 10^3/ul (0.0-0.9)
[2024-04-01] MEDS: Ondansetron 4 mg VIAL 2 MG/ML 2 ml VIAL IV PRN (08:25)
[2024-04-01] MEDS: NS 0.9% 500 ml BAG 500 ML IV ONE (08:28)
[2024-04-01] MEDS ORDERED: Sulfur Hexaflouride MICROSPHR 25 MG VIAL IV PRN ×2 (08:35→16:26)
[2024-04-01 09:06] LABS: ABS Neutrophils 11.6 10^3/ul (1.5-7.6)
[2024-04-01 09:07] LABS: ABS Lymphocytes 0.7 10^3/ul (1.0-4.8); ABS Monocytes 0.9 10^3/ul (0.0-0.9)
[2024-04-01] MEDS: Heparin 1,000 UNIT/ML 10 ml (10,000 UNITS) CATHLAB/DIALYSIS DIALYSIS PRN (09:32)
[2024-04-01] MEDS: Vancomycin 1000 MG in NS 0.9% 250 ML IVPB ONE ×2 (14:54→15:13)
[2024-04-01] MEDS: Phenol 1.4% Throat Spray BTL MT PRN (17:51)
[2024-04-01] MEDS: Ampicillin ADVAN 2 GM in NS 0.9% 100 ml BAG 100 ML IVPB SCH (18:00)
[2024-04-02 05:34] LABS: Albumin 2.1 g/dL (3.2-5.2); Albumin/Globulin Ratio 1.2 (1-3); Calcium 7.5 mg/dL (8.6-10.3); Creatinine, Serum 1.84 mg/dL (0.51-0.95); Globulin 1.7 g/dL (2-4); Magnesium 1.4 mg/dL (1.9-2.7); Potassium 3.4 mmol/L (3.5-5.0); Total Bilirubin 1.1 mg/dL (0.2-1.0); Total Protein 3.8 g/dL (6.4-8.9); eGFR CKD-EPI 29.7 (>60)
[2024-04-02] MEDS ORDERED: Vancomycin Random Level NOTE FOLLOW UP ONE (06:00)
[2024-04-02 06:13] LABS: Hematocrit 24.6 % (35-45); Hemoglobin 8.3 g/dL (11.5-14.3); Mean Corpuscular Hemoglobin 28.3 pg (27-33); Mean Corpuscular Hgb Conc 33.6 g/dL (31-36); Mean Corpuscular Volume 84.1 fL (80-97); Mean Platelet Volume 9.6 fL (7.5-11.2); Platelet Count 213 10^3/uL (150-450); Red Blood Count 2.92 10^6/uL (3.63-4.92); Red Cell Distribution Width 16.5 % (12-17); White Blood Count 8.7 10^3/uL (3.8-11.8)
[2024-04-02 06:14] LABS: RBC Morphology Normal (Normal)
[2024-04-02 06:16] LABS: ABS Lymphocytes 0.4 10^3/ul (1.0-4.8); ABS Monocytes 0.5 10^3/ul (0.0-0.9); ABS Neutrophils 7.8 10^3/ul (1.5-7.7)
[2024-04-02] MEDS ORDERED: chlorproMAZINE 25 MG/ML 2 ML (50 MG) IV PRN (08:27)
[2024-04-02] MEDS: VASOPRESSIN IVPREMIX BTL 40 UNIT/100 ML BTL IV SCH (08:58)
[2024-04-02] MEDS: Albumin Human 25% 25 GM/100 ML BTL IV PRN (10:18)
[2024-04-02 16:42] LABS: Venous Bicarbonate HCO3 25.5 mmol/L (24-28)
[2024-04-02 16:43] LABS: Hematocrit 21.2 % (35-45); Hemoglobin 7.4 g/dL (11.5-14.3)
[2024-04-02] MEDS: Acetaminophen IV 1 GM/100ML 1,000 MG/100 ML BAG IV PRN (18:42)
[2024-04-02] MEDS: Morphine 4 MG/ML VIAL (1 ml) ONE (22:30)
[2024-04-03 05:47] LABS: Albumin 2.8 g/dL (3.2-5.2); Calcium 7.9 mg/dL (8.6-10.3); Creatinine, Serum 1.38 mg/dL (0.51-0.95); Globulin 1.4 g/dL (2-4); Magnesium 1.3 mg/dL (1.9-2.7); Potassium 3.4 mmol/L (3.5-5.0); Total Protein 4.2 g/dL (6.4-8.9)
[2024-04-03 06:43] LABS: ABS Eosinophils 0.1 10^3/uL (0.0-0.5); ABS Lymphocytes 0.9 10^3/uL (1.0-4.8); ABS Monocytes 0.4 10^3/uL (0.0-0.9); ABS Neutrophils 8.1 10^3/uL (1.5-7.6); ABS Nucleated RBC 0.11 10^3/ul; Eosinophil % 0.6 %; Hematocrit 22.8 % (35-45); Hemoglobin 7.7 g/dL (11.5-14.3); Lymphocyte % 9.8 %; Mean Corpuscular Hemoglobin 29.1 pg (27-33); Mean Corpuscular Hgb Conc 33.9 g/dL (31-36); Mean Corpuscular Volume 85.9 fL (80-97); Mean Platelet Volume 9.2 fL (7.5-11.2); Nucleated Red Blood Cells % 1.2 %/100WBC (0.0-0.8); Platelet Count 155 10^3/uL (150-450); Red Blood Count 2.65 10^6/uL (3.63-4.92); Red Cell Distribution Width 16.9 % (12-17); White Blood Count 9.5 10^3/uL (3.8-11.8)
[2024-04-03 06:44] LABS: Anisocytosis 1+; Target Cells 1+
[2024-04-03] MEDS: Norepinephrine 16 MG/250mL NS 16,000 MCG/250 ML BAG IV SCH (17:39)
[2024-04-03] MEDS: Morphine 2 MG/ML SYRINGE IV PRN (23:22)
[2024-04-04 03:54] LABS: Albumin 2.6 g/dL (3.2-5.2); Albumin/Globulin Ratio 1.7 (1-3); Calcium 8.2 mg/dL (8.6-10.3); Creatinine, Serum 1.92 mg/dL (0.51-0.95); Globulin 1.5 g/dL (2-4); Magnesium 1.4 mg/dL (1.9-2.7); Phosphorus 1.6 mg/dL (2.5-5.0); Potassium 3.6 mmol/L (3.5-5.0); Total Bilirubin 1.8 mg/dL (0.2-1.0); Total Protein 4.1 g/dL (6.4-8.9); eGFR CKD-EPI 28.2 (>60)
[2024-04-04 05:29] LABS: Hematocrit 23.7 % (35-45); Mean Corpuscular Hgb Conc 33.5 g/dL (31-36); Mean Corpuscular Volume 86.5 fL (80-97); Mean Platelet Volume 9.4 fL (7.5-11.2); Platelet Count 169 10^3/uL (150-450); Red Blood Count 2.74 10^6/uL (3.63-4.92); Red Cell Distribution Width 17.7 % (12-17); White Blood Count 8.7 10^3/uL (3.8-11.8)
[2024-04-04 05:30] LABS: ABS Eosinophils 0.2 10^3/uL (0.0-0.5); ABS Lymphocytes 0.7 10^3/uL (1.0-4.8); ABS Monocytes 0.4 10^3/uL (0.0-0.9); ABS Neutrophils 7.4 10^3/uL (1.5-7.6); ABS Nucleated RBC 0.16 10^3/ul; Eosinophil % 1.8 %; Lymphocyte % 7.7 %; Nucleated Red Blood Cells % 1.8 %/100WBC (0.0-0.8)
[2024-04-04 05:31] LABS: Anisocytosis 1+; Target Cells 2+
[2024-04-04] MEDS: Magnesium Sulfate 2 gm BAG 2 GM/50 ML BAG IVPB ONE (06:44)
[2024-04-04] MEDS ORDERED: KCL 20 MEQ/100 ML IVPREMIX 20 MEQ/100 ML BAG IV SCH (07:00)
[2024-04-04] MEDS: Magnesium Sulfate 2 gm BAG 2 GM/50 ML BAG ONE (07:25)
[2024-04-04 07:57] LABS: Direct Bilirubin 0.9 mg/dL (0.03-0.18); Indirect Bilirubin 0.9 mg/dL (0.3-1.0)
[2024-04-04] MEDS: Sodium Phosphate IV 30 MMOL in NS 0.9% 250 ml 250 ML IV ONE ×2 (08:35→09:50)
[2024-04-04] MEDS ORDERED: Sodium Phosphate IV 30 MMOL in NS 0.9% 250 ml 250 ML IV ONE (17:00)
[2024-04-05] MEDS: chlorproMAZINE 25 MG/ML 2 ML (50 MG) IV PRN (01:01)
[2024-04-05] MEDS: Norepinephrine 16 MG/250mL NS 16,000 MCG/250 ML BAG IV SCH (01:25)
[2024-04-05] MEDS: Albumin Human 25% 25 GM/100 ML BTL IV ONE (01:25)
[2024-04-05 03:43] LABS: ABS Eosinophils 0.1 10^3/uL (0.0-0.5); ABS Lymphocytes 0.5 10^3/uL (1.0-4.8); ABS Monocytes 0.2 10^3/uL (0.0-0.9); ABS Neutrophils 3.9 10^3/uL (1.5-7.6); ABS Nucleated RBC 0.19 10^3/ul; Hemoglobin 6.5 g/dL (11.5-14.3); Lymphocyte % 10.9 %; Mean Corpuscular Hgb Conc 34.4 g/dL (31-36); Mean Corpuscular Volume 87.1 fL (80-97); Mean Platelet Volume 9.6 fL (7.5-11.2); Platelet Count 117 10^3/uL (150-450); Red Blood Count 2.18 10^6/uL (3.63-4.92); Red Cell Distribution Width 17.3 % (12-17); White Blood Count 4.8 10^3/uL (3.8-11.8)
[2024-04-05] MEDS: Lactated Ringers 1000 ml BAG 500 ML IV ONE (03:44)
[2024-04-05] MEDS ORDERED: Sodium Phosphate IV 0 MMOL in NS 0.9% 250 ml 250 ML IV ONE (03:50)
[2024-04-05] MEDS: Magnesium Sulfate 2 gm BAG 2 GM/50 ML BAG IVPB ONE (04:06)
[2024-04-05 04:19] LABS: Albumin 3.5 g/dL (3.2-5.2); Albumin/Globulin Ratio 3.2 (1-3); Calcium 8.2 mg/dL (8.6-10.3); Creatinine, Serum 1.51 mg/dL (0.51-0.95); Globulin 1.1 g/dL (2-4); Phosphorus 2.9 mg/dL (2.5-5.0); Total Bilirubin 2.2 mg/dL (0.2-1.0); Total Protein 4.6 g/dL (6.4-8.9); eGFR CKD-EPI 37.7 (>60)
[2024-04-05] MEDS: Sodium Phosphate IV 30 MMOL in NS 0.9% 250 ml 250 ML IV ONE (05:06)
[2024-04-05 05:31] LABS: Immature Retic Fraction 0.68
[2024-04-05 05:34] LABS: Corrected Retic Count 0.5 % (0.5-2.2); RBC Retic Count 2.18 10^6/ul (3.63-4.92)
[2024-04-05] MEDS ORDERED: Calcium Carb (TUMS) 500 mg CHEW TAB PO PRN (08:08)
[2024-04-05] MEDS: Pantoprazole VIAL 40 MG VIAL IV SCH ×2 (09:24→20:05)
[2024-04-05 09:37] VITALS: BP 118/70
[2024-04-05] MEDS ORDERED: Ondansetron ODT 4 mg TAB 4 MG TAB SL PRN (11:52)
[2024-04-05 13:24] LABS: Calcium 7.8 mg/dL (8.6-10.3); Creatinine, Serum 1.68 mg/dL (0.51-0.95); Potassium 3.2 mmol/L (3.5-5.0); eGFR CKD-EPI 33.1 (>60)
[2024-04-05] MEDS: KCL 20 MEQ/100 ML IVPREMIX 20 MEQ/100 ML BAG IV SCH (14:13)
[2024-04-05 14:32] LABS: Hematocrit 23.7 % (35-45); Hemoglobin 8.2 g/dL (11.5-14.3)
[2024-04-05] MEDS ORDERED: Zosyn per Pharmacy NOTE FOLLOW UP SCH (15:00)
[2024-04-05] MEDS: Piperacillin/Tazobac 3.375 BAG 3.375 GM/100 ML BAG IV ONE (15:10)
[2024-04-05] MEDS: Thiamine 100 MG/ML 2 ml VIAL 100 MG in NS 0.9% 50 ML 50 ML IV SCH (15:14)
[2024-04-05] MEDS: ZOSYN 3.375 GM Q8H per EXTENDED INFUSION IV SCH (20:12)
[2024-04-06] MEDS ORDERED: Albumin Human 25% 25 GM/100 ML BTL IV PRN (01:46)
[2024-04-06] MEDS: Albumin Human 25% 25 GM/100 ML BTL IV ONE (02:03)
[2024-04-06 04:23] LABS: Hematocrit 24.4 % (35-45); Hemoglobin 8.1 g/dL (11.5-14.3); Mean Corpuscular Hgb Conc 33.2 g/dL (31-36); Mean Corpuscular Volume 87.3 fL (80-97); Mean Platelet Volume 10.1 fL (7.5-11.2); Platelet Count 99 10^3/uL (150-450); Red Blood Count 2.79 10^6/uL (3.63-4.92); Red Cell Distribution Width 16.7 % (12-17)
[2024-04-06 04:48] LABS: Hematocrit 23.3 % (35-45); Hemoglobin 7.6 g/dL (11.5-14.3); Mean Corpuscular Hemoglobin 28.8 pg (27-33); Mean Corpuscular Hgb Conc 32.8 g/dL (31-36); Mean Corpuscular Volume 87.7 fL (80-97); Red Blood Count 2.66 10^6/uL (3.63-4.92); Red Cell Distribution Width 17.2 % (12-17)
[2024-04-06 05:05] LABS: Albumin 3.1 g/dL (3.2-5.2); Albumin/Globulin Ratio 2.6 (1-3); Calcium 7.8 mg/dL (8.6-10.3); Creatinine, Serum 2.15 mg/dL (0.51-0.95); Globulin 1.2 g/dL (2-4); Potassium 4.2 mmol/L (3.5-5.0); Total Bilirubin 2.9 mg/dL (0.2-1.0); Total Protein 4.3 g/dL (6.4-8.9); eGFR CKD-EPI 24.6 (>60)
[2024-04-06] MEDS: Norepinephrine 16 MG/250mL NS 16,000 MCG/250 ML BAG IV SCH (05:11)
[2024-04-06 05:54] LABS: White Blood Count 2.4 10^3/uL (3.8-11.8)
[2024-04-06 05:57] LABS: ABS Lymphocytes 0.7 10^3/uL (1.0-4.8); ABS Monocytes 0.1 10^3/uL (0.0-0.9); ABS Nucleated RBC 0.19 10^3/ul; Anisocytosis 1+; Eosinophil % 1.1 %; Lymphocyte % 18.6 %; Mean Platelet Volume 10.2 fL (7.5-11.2); Platelet Count 96 10^3/uL (150-450); Polychromasia 1+; Target Cells 2+
[2024-04-06] MEDS: Dextrose 50% Syringe 50 ml 25 GM/50 ML SYRINGE IV PUSH PRN (06:29)
[2024-04-06] MEDS: PHENYLEPHRINE DRIP IVPREMIX 50 MG/250 ML BAG IV SCH (11:38)
[2024-04-06] MEDS ORDERED: Norepinephrine 4 MG/250mL D5W 4,000 MCG/250 ML BAG IV ONE (12:30)
[2024-04-06] MEDS: [UNRECOGNIZED DRUG - OTHER] IV SCH (13:27)
[2024-04-06] MEDS: Morphine 4 MG/ML VIAL (1 ml) ONE (14:20)
[2024-04-06] MEDS: Hydrocortisone INJ 100 MG/2ML 2 ML VIAL IV SCH (17:40)
== END 2024-04-06 18:10 | disposition expired | DRG 871 ==
LOC: ED 22:47 → EDHOLD 03-31 04:02 → ICU 03-31 04:32
PROVIDERS: ADMIT Internal Medicine Critical Care Medicine; ATTEND Internal Medicine Critical Care Medicine